=== PATIENT | female | born 1950 | race Caucasian/White ===

== ENCOUNTER → 2016-12-31 | Outpatient (CLI) | payer MEDICARE ==
[2016-12-31 13:37] LABS: Basophils # (A) 0.1 k/uL (0-0.2); Basophils % (A) 1 %; CH 28.6; CHCM 32.4; Eosinophils # (A) 0.3 k/uL (0-0.7); Eosinophils % (A) 4 %; HCT 38.9 % (34.0-46.0); HDW 2.74; HGB 12.3 gm/dL (11.4-16.0); Luc # (Auto) 0.14; Luc % (Auto) 2; Lymphocytes # (A) 1.9 k/uL (1.0-4.8); Lymphocytes % (A) 29 %; MCH 28.1 pg (25.0-35.0); MCHC 31.7 g/dL (31.0-37.0); MCV 88.6 fL (80.0-100.0); Monocytes # (A) 0.3 k/uL (0-1.0); Monocytes % (A) 5 %; Neutrophils % (A) 60 %; RBC 4.39 m/uL (3.80-5.40); RDW 13.7 % (11.5-15.5); WBC 6.7 k/uL (3.8-10.6); WBC (Perox) 6.82
== END | disposition home or self-care (01) ==
LOC: LABWHC1 13:11
PROVIDERS: ATTEND Internal Medicine
DX: K62.5 Hemorrhage of anus and rectum (principal)
CPT/HCPCS: 36415; 85025

== ENCOUNTER → 2017-04-07 | Outpatient (CLI) | payer MEDICARE ==
[2017-04-07 13:23] LABS: ALT 15 U/L (9-52); AST 18 U/L (14-36); Alkaline Phosphatase 84 U/L (38-126); Anion Gap 8 mmol/L; Blood Urea Nitrogen 23 mg/dL (7-17); Calcium 9.4 mg/dL (8.4-10.2); Carbon Dioxide 24 mmol/L (22-30); Chloride 109 mmol/L (98-107); Glucose 89 mg/dL (74-99); Non-African American GFR(MDRD) 56 (>60 ml/min/1.73 sqM); Potassium 4.1 mmol/L (3.5-5.1); Sodium 141 mmol/L (137-145); Total Bilirubin 0.5 mg/dL (0.2-1.3); Total Protein 7.2 g/dL (6.3-8.2)
== END | disposition home or self-care (01) ==
LOC: LABWHC1 12:43
PROVIDERS: ATTEND Internal Medicine
DX: I10 Essential (primary) hypertension (principal)
CPT/HCPCS: 36415; 80053

== ENCOUNTER → 2017-08-30 | Outpatient (CLI) | payer MEDICARE ==
[2017-08-30 10:14] LABS: Appearance,Urine Clear (Clear); Bacteria,Urine Rare /hpf; Bilirubin,Urine Negative (Negative); Glucose,Urine (UA) Negative (Negative); Ketones,Urine Negative (Negative); Leukocyte Esterase,Urine Small (Negative); Mucus,Urine Rare /hpf; Nitrite,Urine Negative (Negative); Particle Count 1176; Protein,Urine Negative (Negative); Specific Gravity,Urine 1.012 (1.001-1.035); Squamous Epithelial Cell,Urine 1 /hpf (0-4); UA Billing (MACRO vs. MICRO) MICRO; Urobilinogen,Urine <2.0 mg/dL (<2.0); WBC,Urine 2 /hpf (0-5)
[2017-08-30 10:17] LABS: CH 29.8; HCT 37.4 % (34.0-46.0); HDW 2.68; HGB 12.1 gm/dL (11.4-16.0); MCH 30.1 pg (25.0-35.0); MCHC 32.2 g/dL (31.0-37.0); MCV 93.3 fL (80.0-100.0); Mean Platelet Volume 7.6; RBC 4.01 m/uL (3.80-5.40); RDW 13.7 % (11.5-15.5); WBC 5.5 k/uL (3.8-10.6)
[2017-08-30 10:41] LABS: ALT 30 U/L (9-52); AST 22 U/L (14-36); Alkaline Phosphatase 90 U/L (38-126); Anion Gap 9 mmol/L; Blood Urea Nitrogen 23 mg/dL (7-17); Carbon Dioxide 24 mmol/L (22-30); Chloride 108 mmol/L (98-107); Cholesterol 166 mg/dL (<200); Glucose 91 mg/dL (74-99); HDL Cholesterol 70 mg/dL (40-60); Non-African American GFR(MDRD) 55 (>60 ml/min/1.73 sqM); Sodium 141 mmol/L (137-145); Total Bilirubin 0.4 mg/dL (0.2-1.3); Total Protein 6.3 g/dL (6.3-8.2)
--- NOTE | 2017-08-30 10:41 | US ---
EXAMINATION TYPE: US carotid duplex BILAT DATE OF EXAM: 08/30/2017 COMPARISON: NONE CLINICAL HISTORY: 780.2 SYNCOPE. Syncope EXAM MEASUREMENTS: RIGHT: Peak Systolic Velocity (PSV) cm/sec ----- Right CCA: 86.7 ----- Right ICA: 93.0 ----- Right ECA: 105.3 ICA/CCA ratio: 1.1 RIGHT: End Diastole cm/sec ----- Right CCA: 26.0 ----- Right ICA: 27.3 ----- Right ECA: 16.1 LEFT: Peak Systolic Velocity (PSV) cm/sec ----- Left CCA: 95.1 ----- Left ICA: 89.9 ----- Left ECA: 98.5 ICA/CCA ratio: 0.9 LEFT: End Diastole cm/sec ----- Left CCA: 22.8 ----- Left ICA: 38.1 ----- Left ECA: 13.5 VERTEBRALS (direction of flow): Right Vertebral: Antegrade Left Vertebral: Antegrade Rhythm: Normal Mild plaque noted bilateral bifurcations. No increased velocities. No evidence of significant stenosi s. Grayscale images show no significant focal plaque in carotid bulb level bilaterally. No suspicious in creased velocities are evident. IMPRESSION: No hemodynamically significant stenosis seen in either internal carotid artery.
--- NOTE | 2017-08-31 06:53 | MM ---
Reason for exam: screening (asymptomatic). Last mammogram was performed 1 year and 11 months ago. History: Patient is postmenopausal. Core biopsy of the left breast. Physical Findings: A clinical breast exam by your physician is recommended on an annual basis and results should be correlated with mammographic findings. MG 3D Screening Mammo W/Cad Bilateral CC and MLO view(s) were taken. Prior study comparison: September 17, 2015, bilateral MG screening mammo w CAD. September 12, 2014, mammogram, performed at [facility]. There are scattered fibroglandular densities. Finding: There are typically benign round calcifications in both breasts. Previous mammotome biopsy in the left breast. There is a chronic nodularity bilaterally. There is no discrete abnormality. ASSESSMENT: Benign, BI-RAD 2 RECOMMENDATION: Routine screening mammogram of both breasts in 1 year.
== END | disposition home or self-care (01) ==
LOC: RADUSWWP 09:38
PROVIDERS: ATTEND Internal Medicine
DX: Z12.31 Encounter for screening mammogram for malignant neoplasm of breast (principal); R55 Syncope and collapse; N39.0 Urinary tract infection, site not specified; I10 Essential (primary) hypertension; E78.2 Mixed hyperlipidemia; E03.9 Hypothyroidism, unspecified
CPT/HCPCS: 84439; 84481; 80061; 80053; 84443; 85027; 81001; 87086; 77063; 93880; 36415; G0202

== ENCOUNTER → 2017-09-10 | Outpatient (CLI) | payer MEDICARE ==
--- NOTE | 2017-09-10 16:30 | MR ---
EXAMINATION TYPE: MR shoulder RT wo con DATE OF EXAM: 09/10/2017 4:21 PM COMPARISON: NONE HISTORY: Right shoulder pain TECHNIQUE: Multiplanar, multisequence imaging of the right shoulder is performed without contrast. FINDINGS: There is no evidence of an os acromiale. There are [id number]-[id number] hypertrophic changes in the right AC joint. The acromion is neutral. There is extensive tendinosis involving the supraspinatus and infraspinatus tendons. There is a 9.9 m m rim rent tear involving the anterior fibers of the infraspinatus tendon. There is a 9.8 mm intrasub stance tear of the supraspinatus tendon. There is no complete tear and there is no muscular retractio n. The cartilaginous glenoid labrum appears intact. The biceps tendon is situated normally within the biceps tendon groove and inserts normally upon the biceps anchor. There is a small amount of fluid in the rotator interval. IMPRESSION: 1. DIFFUSE TENDINOSIS OF BOTH THE SUPRASPINATUS AND INFRASPINATUS TENDONS. 2. INTRASUBSTANCE TEARS OF BOTH THE SUPRASPINATUS AND INFRASPINATUS TENDONS. 3. [id number] HYPERTROPHIC CHANGE IN THE RIGHT AC JOINT.
== END ==
LOC: RADMRIMAIN 15:20
PROVIDERS: ATTEND Orthopaedic Surgery
DX: M75.101 Unspecified rotator cuff tear or rupture of right shoulder, not specified as traumatic (principal); M75.91 Shoulder lesion, unspecified, right shoulder

== ENCOUNTER → 2018-05-13 | Outpatient (CLI) | payer MEDICARE ==
--- NOTE | 2018-05-13 09:03 | CT ---
EXAMINATION TYPE: CT brain wo con DATE OF EXAM: 05/13/2018 COMPARISON: 04/20/2012 INDICATION: PIERRE, runny nose DLP: 1121 mGycm, Automated exposure control for dose reduction was used. CONTRAST: None CT of the brain is performed utilizing 3 mm thick sections through the posterior fossa and 3 mm thick sections through the remaining calvarium. Study is performed within 24 hours of arrival to the hosp [facility]. No abnormal hyperdensity is present to suggest an acute intracranial hemorrhage. No mass lesion is evident. No acute infarcts are evident. Ventricles and sulci are appropriate for the patient age. Paranasal sinuses and mastoid air cells within the [id number] are clear. IMPRESSIONS: 1. No acute intracranial process.
== END | disposition home or self-care (01) ==
LOC: RADCTMAIN 08:02
PROVIDERS: ATTEND Internal Medicine
DX: R51 Headache (principal)
CPT/HCPCS: 70450

== ENCOUNTER → 2018-07-07 | Outpatient (CLI) | payer MEDICARE ==
--- NOTE | 2018-07-07 09:49 | XR ---
Lumbosacral spine HISTORY: Low back pain 5 views of the lumbosacral spine Lumbar vertebral bodies show preserved height and bone mineralization. There is no evident spondyloly sis. Loss of disc height is present greatest at L5-S1, L4-5. Minimal anterolisthesis grade 1 L4-5. Sc lerosis present in the posterior elements of the lumbar spine. There are vascular calcifications note d incidentally. Surgical clips present right upper quadrant, pelvis. IMPRESSION: Degenerative disc disease, facet arthropathy.
== END | disposition home or self-care (01) ==
LOC: RADXRMAIN 08:49
PROVIDERS: ATTEND Internal Medicine
DX: M51.36 Other intervertebral disc degeneration, lumbar region (principal); M46.96 Unspecified inflammatory spondylopathy, lumbar region
CPT/HCPCS: 72110

== ENCOUNTER → 2018-07-28 | Outpatient (CLI) | payer MEDICARE ==
--- NOTE | 2018-07-28 07:44 | US ---
EXAMINATION TYPE: US abdomen complete DATE OF EXAM: 07/28/2018 COMPARISON: CT CLINICAL HISTORY: R10. ABDOMINAL PAIN. Pt states right flank pain x 3 weeks, GB removed EXAM MEASUREMENTS: Liver Length: 17.0 cm CBD: 0.7 cm Spleen: 9.4 cm Right Kidney: 10.1 x 4.5 x 4.1 cm Left Kidney: 10.0 x 3.9 x 3.7 cm Large pt body habitus Pancreas: 3mm duct visualized, head and tail obscured by overlying bowel gas Liver: Heterogeneous, otherwise appeared wnl Gallbladder: Surgically absent Evidence for sonographic Hunter's sign: No CBD: wnl for post fer Spleen: wnl Right Kidney: wnl Left Kidney: wnl Upper IVC: wnl Abd Aorta: wnl No abnormality visualized to account for pt's symptoms Results called to Arelis at Dr's office at time of exam The intrahepatic portion of the IVC and proximal abdominal aorta are within normal limits. Common bile duct is unremarkable. The visualized portions of the pancreas are homogenous. The spleen is u nremarkable. Kidneys are symmetric and free of hydronephrosis. No renal lesions are seen. IMPRESSION: 1. Mild fatty liver. Otherwise unremarkable study.
[2018-07-28 09:49] LABS: Basophils % (A) 1 %; Eosinophils # (A) 0.3 k/uL (0-0.7); Eosinophils % (A) 4 %; HCT 38.7 % (34.0-46.0); HGB 12.2 gm/dL (11.4-16.0); Lymphocytes # (A) 1.6 k/uL (1.0-4.8); Lymphocytes % (A) 23 %; MCH 29.2 pg (25.0-35.0); MCHC 31.6 g/dL (31.0-37.0); MCV 92.4 fL (80.0-100.0); Mean Platelet Volume 6.9; Monocytes # (A) 0.4 k/uL (0-1.0); Monocytes % (A) 5 %; Neutrophils # (A) 4.5 k/uL (1.3-7.7); Neutrophils % (A) 66 %; Platelet Count 204 k/uL (150-450); RBC 4.19 m/uL (3.80-5.40); RDW 12.7 % (11.5-15.5); WBC 6.9 k/uL (3.8-10.6)
[2018-07-28 10:04] LABS: Albumin 3.8 g/dL (3.5-5.0); Calcium 9.5 mg/dL (8.4-10.2); Potassium 4.8 mmol/L (3.5-5.1); Total Bilirubin 0.6 mg/dL (0.2-1.3); Total Protein 6.5 g/dL (6.3-8.2)
[2018-07-28 10:05] LABS: Appearance,Urine Clear (Clear); Bilirubin,Urine Negative (Negative); Blood,Urine Negative (Negative); Color,Urine Light Yellow; Glucose,Urine (UA) Negative (Negative); Hyaline Casts,Urine 6 /lpf (0-2); Ketones,Urine Negative (Negative); Leukocyte Esterase,Urine Moderate (Negative); Mucus,Urine Rare /hpf; Nitrite,Urine Negative (Negative); PH, Urine 5.5 (5.0-8.0); Protein,Urine Negative (Negative); Specific Gravity,Urine 1.009 (1.001-1.035); Squamous Epithelial Cell,Urine 1 /hpf (0-4); Urobilinogen,Urine <2.0 mg/dL (<2.0)
[2018-07-28 11:15] LABS: Erythrocyte Sedimentation Rate 20 mm/hr (0-20)
== END | disposition home or self-care (01) ==
LOC: RADUSWWP 06:56
PROVIDERS: ATTEND Internal Medicine
DX: K76.0 Fatty (change of) liver, not elsewhere classified (principal); I10 Essential (primary) hypertension; N39.0 Urinary tract infection, site not specified; M54.6 Pain in thoracic spine
CPT/HCPCS: 36415; 76700; 80053; 81001; 85025; 85652

== ENCOUNTER → 2018-07-28 | Outpatient (CLI) | payer MEDICARE ==
--- NOTE | 2018-07-28 09:19 | XR ---
EXAMINATION TYPE: XR thoracic spine complete DATE OF EXAM: 07/28/2018 COMPARISON: NONE HISTORY: Pain Alignment is anatomic. There is no compression deformities. Hypertrophic and degenerative changes of the spine noted. There are no compression deformities. Calcifications in the left upper quadrant not ed. Splenic artery aneurysm differential diagnosis IMPRESSION: 1. Multilevel moderate to severe degenerative disc disease 2. Calcification left upper abdomen likely related to splenic artery aneurysm. Corresponds to monserrat jett reported CT exam 2016 confirming the diagnosis of splenic artery aneurysm.
== END | disposition home or self-care (01) ==
LOC: LABWHC1 08:55
PROVIDERS: ATTEND Internal Medicine
DX: M51.34 Other intervertebral disc degeneration, thoracic region (principal); I10 Essential (primary) hypertension; N39.0 Urinary tract infection, site not specified
CPT/HCPCS: 72072

== ENCOUNTER → 2018-10-28 | Outpatient (CLI) | payer MEDICARE ==
--- NOTE | 2018-10-31 10:43 | MM ---
Reason for exam: screening (asymptomatic). Last mammogram was performed 1 year and 2 months ago. History: Patient is postmenopausal. Core biopsy of the left breast. Physical Findings: A clinical breast exam by your physician is recommended on an annual basis and results should be correlated with mammographic findings. MG 3D Screening Mammo W/Cad Bilateral CC and MLO view(s) were taken. Prior study comparison: August 30, 2017, bilateral MG 3d screening mammo w/cad. September 17, 2015, bilateral MG screening mammo w CAD. There are scattered fibroglandular densities. Benign appearing bilateral calcifications. No suspicious abnormality. Left biopsy marker noted. No significant changes when compared with prior studies. ASSESSMENT: Benign, BI-RAD 2 RECOMMENDATION: Routine screening mammogram of both breasts in 1 year.
== END | disposition home or self-care (01) ==
LOC: RADMAMWWP 12:52
PROVIDERS: ATTEND Internal Medicine
DX: Z12.31 Encounter for screening mammogram for malignant neoplasm of breast (principal)
CPT/HCPCS: 77063; 77067

== ENCOUNTER → 2019-03-30 | Outpatient (CLI) | payer MEDICARE ==
--- NOTE | 2019-03-30 10:18 | US ---
EXAMINATION TYPE: US venous doppler duplex LE RT DATE OF EXAM: 03/30/2019 9:58 AM COMPARISON: NONE CLINICAL HISTORY: M79.661 Pain in right lower leg. bruised leg while picking up sticks, no h/o dvt SIDE PERFORMED: right TECHNIQUE: The lower extremity deep venous system is examined utilizing real time linear array sonog kiran with graded compression, doppler sonography and color-flow sonography. VESSELS IMAGED: External Iliac Vein (EIV) Common Femoral Vein Deep Femoral Vein Greater Saphenous Vein * Femoral Vein Popliteal Vein Small Saphenous Vein * Proximal Calf Veins (* superficial vessels) Right Leg: Appears negative for DVT IMPRESSION: 1. Right lower extremity ultrasound negative for deep venous thrombosis.
== END | disposition home or self-care (01) ==
LOC: RADUSWWP 09:40
PROVIDERS: ATTEND Internal Medicine
DX: M79.661 Pain in right lower leg (principal); R22.41 Localized swelling, mass and lump, right lower limb

== ENCOUNTER → 2019-10-04 | Outpatient (CLI) | payer MEDICARE ==
[2019-10-04 14:29] LABS: HCT 37.4 % (34.0-46.0); HGB 12.3 gm/dL (11.4-16.0); MCH 30.1 pg (25.0-35.0); MCHC 32.8 g/dL (31.0-37.0); MCV 91.8 fL (80.0-100.0); Mean Platelet Volume 7.3; Platelet Count 241 k/uL (150-450); RBC 4.08 m/uL (3.80-5.40); RDW 12.9 % (11.5-15.5); WBC 5.4 k/uL (3.8-10.6)
[2019-10-04 14:34] LABS: Potassium 4.5 mmol/L (3.5-5.1)
== END | disposition home or self-care (01) ==
LOC: LABWHC1 12:37
PROVIDERS: ATTEND Internal Medicine Cardiovascular Disease
DX: Z01.812 Encounter for preprocedural laboratory examination (principal); R07.2 Precordial pain; R94.39 Abnormal result of other cardiovascular function study
CPT/HCPCS: 36415; 80051; 82565; 82947; 84520; 85027

== ENCOUNTER 2019-10-19 07:22 | Day surgery (SDC) | payer MEDICARE ==
[2019-10-18 10:08] VITALS: BMI 44.7
[~2019-10-19 07:22] MED LIST: ALPRAZolam 0.25 MG TAB PO PRN; ALPRAZolam 0.5 MG TAB PO PRN; ASPIRIN 325 MG TAB PO STA; ATORVASTATIN 80 MG TAB PO STA; NITROGLYCERIN SL TABS 0.4 MG TAB SUBLINGUAL PRN; SODIUM CHLORIDE 0.9% 1,000 ML in EMPTY BAG 1 BAG IV ONE
[2019-10-19 07:50] VITALS: TEMP 97.9
[2019-10-19] MEDS ORDERED: SODIUM CHLORIDE 0.9% 1,000 ML IV ONE (07:55)
[2019-10-19] MEDS ORDERED: MIDAZOLAM 2 MG/2 ML VIAL IV ONE (08:29)
[2019-10-19] MEDS: LIDOCAINE 1% INJ 10MG/ML (20 ML MDV) SQ ONE ×2 (08:35→08:50)
[2019-10-19] MEDS ORDERED: VERAPAMIL SYRINGE (5 MG/10 ML) INTRAARTER ONE (08:39)
[2019-10-19] MEDS ORDERED: HEPARIN SODIUM 1,000 UN/ML (10ML VL) IV ONE (08:40)
[2019-10-19] MEDS: fentaNYL (PF) 50 MCG/ML 2 ML AMP IV ONE ×2 (08:42→08:47)
[2019-10-19] MEDS ORDERED: RX INFO: IV CONTRAST WAS GIVEN 1 EACH MISC MISCELLANE PRN (09:24)
[2019-10-19] MEDS ORDERED: SODIUM CHLORIDE 0.9% 1,000 ML IV SCH (09:30)
--- NOTE | 2019-10-19 09:40 | P.CARDCATH ---
Date of Procedure: 10/19/19 Preoperative Diagnosis: Chest pain and positive stress test Postoperative Diagnosis: Normal coronary arteries Procedure(s) Performed: Left heart catheterization without left ventriculography Description of Procedure: HISTORY: This is a 69-year-old female with history of hypercholesterolemia was been experiencing chest pains. A cardiac catheterization of size to possible mild ischemia involving the anterior lateral and inferolateral segments. Patient is advised to have a cardiac catheterization for definitive diagnosis CONSENT:I have discussed the risks, benefits and alternative therapies for the above-mentioned procedure and for both sedation/analgesia as well as necessary blood product administration, if indicated, as they pertain to this patient. The patient has indicated understanding and acceptance of the risks and procedures discussed. PROCEDURE: Patient was brought to the lab in a fasting state. Patient was given some IV sedation. The right wrist was infiltrated with lidocaine. The right radial artery was entered using Seldinger technique. IV verapamil and heparin was given. A 5-Swedish right Hong catheter was advanced and was placed in the ascending aorta. Patient has acute bend involving the arch of the aorta and it was difficult to maneuver the catheter into right coronary artery. In the process of torquing the catheter, the catheter coiled and devoloped a twist. The catheter was slowly pulled out and with help of a stiff guidewire, the catheter was pulled out. Patient had moderate discomfort but no immediate complications. Angiogram done after the procedure showed normal findings. Subsequently the catheterization was performed from the right groin. TR band was applied for hemostasis. The patient. The right groin is infiltrated with lidocaine and right femoral artery was entered using Seldinger technique. A 6-Swedish catheter was left in place and selective coronary arteriography and left ventriculography was performed. Patient tolerated the procedure well. Femoral angiogram was performed and Angio-Seal was applied for hemostasis. No immediate complications were noted and patient was transferred to [facility] in a stable condition Conscious Sedation: Versed 1mg Fentanyl 100 g Duration 33 minutes HEMODYNAMICS:. The aortic pressure was 120/70. The left ventricle end- diastolic pressure was 12. There was no gradient across the aortic valve SELECTIVE CORONARY ARTERIOGRAPHY: LEFT MAIN: Normal length and patent THE LEFT ANTERIOR DESCENDING CORONARY ARTERY:. This is a moderate caliber vessel giving rise good-sized diagonal branches. The LAD and branches are free of occlusive disease is minimal plaque. THE LEFT CIRCUMFLEX AND IS CORONARY ARTERY: This is a small to moderate in caliber and free of occlusive disease THE RIGHT CORONARY ARTERY:. This is a dominant vessel giving rise good-sized PDA and PLV and free of any significant occlusive disease LEFT VENTRICULOGRAPHY:. Not performed FINAL IMPRESSION: Minimal plaque in the LAD, otherwise normal coronary arteries PLAN: Maximum medical therapy and risk factor modification PROGNOSIS: Guarded
[2019-10-19] MEDS ORDERED: Acetaminophen-Codeine 300-30mg TAB ONE (10:02)
[2019-10-19 10:38] VITALS: RESP 16
[2019-10-19 14:36] VITALS: BP 118/72; PULSE 58
== END 2019-10-19 14:20 | disposition home or self-care (01) ==
LOC: CATHCVL 07:22
PROVIDERS: ATTEND Internal Medicine Cardiovascular Disease
DX: I25.10 Atherosclerotic heart disease of native coronary artery without angina pectoris (principal); E78.00 Pure hypercholesterolemia, unspecified; F43.9 Reaction to severe stress, unspecified; I10 Essential (primary) hypertension; E78.5 Hyperlipidemia, unspecified; I73.9 Peripheral vascular disease, unspecified; Z79.82 Long term (current) use of aspirin; Z79.899 Other long term (current) drug therapy; Z79.890 Hormone replacement therapy; Z79.1 Long term (current) use of non-steroidal anti-inflammatories (NSAID); Z79.891 Long term (current) use of opiate analgesic; Z88.2 Allergy status to sulfonamides; Z82.49 Family history of ischemic heart disease and other diseases of the circulatory system
CPT/HCPCS: 93458; C1760; C1769 ×4; C1894 ×2; J2250; J2001; J3010; J1644

== ENCOUNTER → 2019-10-30 | Outpatient (CLI) | payer MEDICARE ==
--- NOTE | 2019-10-31 08:47 | MM ---
Reason for exam: screening (asymptomatic). Last mammogram was performed 1 year ago. History: Patient is postmenopausal. Core biopsy of the left breast. Physical Findings: A clinical breast exam by your physician is recommended on an annual basis and results should be correlated with mammographic findings. MG 3D Screening Mammo W/Cad Bilateral CC and MLO view(s) were taken. Prior study comparison: October 28, 2018, bilateral MG 3d screening mammo w/cad. August 30, 2017, bilateral MG 3d screening mammo w/cad. The breast tissue is heterogeneously dense. This may lower the sensitivity of mammography. There are benign appearing round dystrophic calcifications bilaterally. There is chronic nodularity bilaterally. There is no discrete abnormality. ASSESSMENT: Benign, BI-RAD 2 RECOMMENDATION: Routine screening mammogram of both breasts in 1 year. Manage on a clinical basis with regard to bilateral axilla pain.
== END | disposition home or self-care (01) ==
LOC: RADMAMWWP 10:38
PROVIDERS: ATTEND Internal Medicine
DX: Z12.31 Encounter for screening mammogram for malignant neoplasm of breast (principal); M79.622 Pain in left upper arm; M79.621 Pain in right upper arm
CPT/HCPCS: 77063; 77067

== ENCOUNTER → 2020-05-03 | Outpatient (CLI) | payer MEDICARE ==
--- NOTE | 2020-05-03 13:38 | CT ---
EXAMINATION TYPE: CT brain wo con DATE OF EXAM: 05/03/2020 COMPARISON: CT brain dated 05/13/2018 HISTORY: Rt sided arm numbness CT DLP: 1072.3 mGycm Automated exposure control for dose reduction was used. TECHNIQUE: CT scan of the head is performed without contrast. FINDINGS: There is no acute intracranial hemorrhage or midline shift identified. There is minimal d iffuse ventricular and sulcal prominence consistent with diffuse age-related cerebral atrophy. The globes are intact. Trace mucosal thickening of the ethmoid and right maxillary sinus. The remaining v isualized sinuses are clear. Atherosclerosis of the intracranial vasculature. Right parotid mass is complex and solid measuring 3.2 x 2.9 cm but only partially visualized on this examination. IMPRESSION: 1. No acute intracranial hemorrhage or midline shift. 2. 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 MRI could be utilized to further characterize this mass in addition to recommendation for ENT consultation consideration for percutaneous biopsy. 3. Diffuse age-related cerebral atrophy, mild overall.
--- NOTE | 2020-05-03 14:08 | CT ---
EXAMINATION TYPE: CT soft tissue neck wo con DATE OF EXAM: 05/03/2020 HISTORY: Rt sided parotid mass COMPARISON: CT brain of the same date CT DLP: 742.4 mGycm. Automated Exposure Control for Dose Reduction was Utilized. TECHNIQUE: CT scan of the neck is performed without intravenous contrast, limiting evaluation. FINDINGS: Patient motion limits examination particularly of the lungs. Parotid/submandibular glands: There is a solid right parotid gland mass measuring 3.4 x 3.1 x 4.7 cm in anterior posterior by transverse by craniocaudal dimension. This involves both the deep and superf icial lobes of the right parotid gland and appears slightly heterogenous with internal complexity as there a few areas of hyperintensity and few punctate foci of hypointensity. No inflammatory change of the surrounding the parotid gland. No suspicious adenopathy in the neck. Carotid/Vascular Structures: Suboptimally evaluated without contrast. Conventional three-vessel branc h pattern of the aortic arch and mild atheromatous change. Osseous Structures: Motion artifact somewhat limits evaluation of the spine. There is minimal retroli sthesis of C5 on C6, likely on a degenerative basis. Overall mild degenerative change. Facets remain aligned. No abnormal prevertebral soft tissue swelling. Other: Visualized portion of the brain as discussed on the CT brain dictation of the same date. Coron adriana artery calcifications partially visualized, at least mild. Enlargement of the main pulmonary vanda conor measure up to 2.7 cm suggestive of pulmonary artery hypertension. Incidentally noted bovine aort ic arch. Atrophy of the thyroid. Subpleural 5 mm right apical pulmonary nodule versus focal pleural p arenchymal thickening on image 28. IMPRESSION: 1. Solid complex 4.7 cm right parotid gland mass involving both the deep and superficial lobes of the parotid gland. MRI could be utilized to further characterize this mass. Additionally, recommendation for ENT consultation consideration for percutaneous biopsy. 2. Possible subpleural 5 mm right apical pulmonary nodule versus focal pleural thickening suboptimall y evaluated given patient motion. CT thorax could further evaluate the entirety of the lungs.
== END | disposition home or self-care (01) ==
LOC: RADCTMAIN 11:58
PROVIDERS: ATTEND Internal Medicine
DX: D11.0 Benign neoplasm of parotid gland (principal); G31.1 Senile degeneration of brain, not elsewhere classified
CPT/HCPCS: 70450; 70490

== ENCOUNTER → 2020-07-02 | Outpatient (CLI) | payer MEDICARE | END | disposition home or self-care (01) | LOC: LABPAT 11:16 | PROVIDERS: ATTEND Otolaryngology | DX: Z01.818 Encounter for other preprocedural examination (principal) | CPT/HCPCS: U0003; C9803 ==

== ENCOUNTER 2020-08-19 20:51 | Emergency (ER) | payer MEDICARE ==
[2020-08-19] MEDS ORDERED: KETOROLAC 15 MG/ML 1 ML VIAL IVP STA (21:29)
[2020-08-19] MEDS ORDERED: SODIUM CHLORIDE 0.9% 1,000 ML IV STA (21:29)
[2020-08-19] MEDS ORDERED: ORPHENADRINE 30 MG/ML 2 ML VIAL IVP STA (21:30)
--- NOTE | 2020-08-19 21:39 | ED ---
Headache HPI - General Chief Complaint: Headache Stated Complaint: Headache Time Seen by Provider: 08/19/20 21:08 Source: patient, family, RN notes reviewed Mode of arrival: ambulatory Limitations: no limitations - History of Present Illness Initial Comments: This is a 70-year-old female history of a recent right parotid tumor resection on July 09 presents with complaints of feeling tired all day for the past several days slight cough chronic rhinorrhea and right-sided headache. States the pain is reproducible by palpating her scalp. No cough no phlegm production no dysuria no hematuria she does states she's sleeping a lot the. No other complaints or modifying factors at this time she does have a right facial droop and lid lag on the right secondary to the surgery she states. No focal weakness otherwise. MD Complaint: headache - Related Data Home Medications Medication Instructions Recorded Confirmed Levothyroxine Sodium [Levoxyl] 200 mcg PO DAILY 11/12/15 10/19/19 Lisinopril-Hctz 20-25 mg 1 tab PO DAILY 11/12/15 10/19/19 [Zestoretic 20-25] Pantoprazole Sodium [Protonix] 40 mg PO DAILY 11/12/15 10/19/19 Pravastatin Sodium [Pravachol] 40 mg PO BID 11/12/15 10/19/19 Ibuprofen [Motrin] 800 mg PO TID PRN 11/23/16 10/19/19 Multivitamins, Thera [Multivitamin 1 tab PO DAILY 11/23/16 10/19/19 (formulary)] Acetaminophen-Codeine 300-30mg 1 tab PO Q6H PRN 11/01/17 10/19/19 [Tylenol w/codeine #3] Aspirin [Children's Aspirin] 81 mg PO DAILY 10/18/19 10/19/19 DULoxetine HCL [Cymbalta] 60 mg PO DAILY 10/18/19 10/19/19 Metoprolol Succinate (ER) [Toprol 25 mg PO DAILY 10/18/19 10/19/19 XL] Allergies Allergy/AdvReac Type Severity Reaction Status Date / Time sulfamethoxazole Allergy Rash/Hives Verified 08/19/20 20:59 [From Bactrim] trimethoprim [From Bactrim] Allergy Rash/Hives Verified 08/19/20 20:59 Review of Systems ROS Statement: Those systems with pertinent positive or pertinent negative responses have been documented in the HPI. ROS Other: All systems not noted in ROS Statement are negative. Past Medical History Past Medical History: Hyperlipidemia, Hypertension Additional Past Medical History / Comment(s): ankle swelling, dry eye History of Any Multi-Drug Resistant Organisms: None Reported Past Surgical History: Bowel Resection, Cholecystectomy, Hysterectomy, Joint Replacement Additional Past Surgical History / Comment(s): TOTAL LEFT KNEE, rectocele repair, 07/27/16 TOTAL RT KNEE REPLEAMCENT, tumor removed from right cheek. Past Anesthesia/Blood Transfusion Reactions: No Reported Reaction Past Psychological History: Anxiety Smoking Status: Never smoker Past Alcohol Use History: None Reported Past Drug Use History: None Reported - Past Family History Father Family Medical History: Myocardial Infarction ([place]) Additional Family Medical History / Comment(s): ALCOHOL ABUSE, KIDNEY FAILURE Mother Family Medical History: COPD, Diabetes Mellitus General Exam - General Exam Comments Initial Comments: This is a well-developed well-nourished awake alert oriented 3 female Limitations: no limitations General appearance: alert, in no apparent distress Head exam: Present: atraumatic, normocephalic Eye exam: Present: PERRL, EOMI, other (Seventh nerve palsy of the right lid noted) Pupils: Present: normal accommodation ENT exam: Present: TM's normal bilaterally, other (Right facial asymmetry compared to the left consistent with facial nerve injury) Neck exam: Present: normal inspection, full ROM, other (No stridor JVD or bruits). Absent: tenderness, meningismus, lymphadenopathy Respiratory exam: Present: normal lung sounds bilaterally. Absent: respiratory distress, wheezes, rales, rhonchi, stridor Cardiovascular Exam: Present: regular rate, normal rhythm, normal heart sounds. Absent: systolic murmur, diastolic murmur, rubs, gallop, clicks Back exam: Present: full ROM Neurological exam: Present: alert, oriented X3, motor sensory deficit. Absent: CN II-XII intact Psychiatric exam: Present: normal affect, normal mood Skin exam: Present: warm, dry, intact, normal color. Absent: rash Course Vital Signs 08/19/20 20:55 Temperature 97.1 F L Pulse Rate 72 Respiratory 20 Rate Blood Pressure 154/94 O2 Sat by Pulse 98 Oximetry Medical Decision Making - Medical Decision Making I did a long discussion with the patient family regarding findings. This time no infectious etiology is found. Lungs are clear no dysuria or change in color spell. Patient is showing improved the. Patient will be discharged she is follow-up with her doctor return when necessary. Return parameters were discussed. She will follow-up with her PCP. The headache symptoms are consistent with musculoskeletal etiology. Additionally patient is states she has some relief from initial treatment. - Lab Data Result diagrams: 08/19/20 21:31 08/19/20 21:31 Lab Results 08/19/20 08/19/20 Range/Units 21:31 21:31 WBC 7.1 (3.8-10.6) k/uL RBC 4.55 (3.80-5.40) m/uL Hgb 13.5 (11.4-16.0) gm/dL Hct 40.8 (34.0-46.0) % MCV 89.7 (80.0-100.0) fL MCH 29.7 (25.0-35.0) pg MCHC 33.2 (31.0-37.0) g/dL RDW 12.8 (11.5-15.5) % Plt Count 223 (150-450) k/uL Neutrophils % 43 % Lymphocytes % 38 % Monocytes % 5 % Eosinophils % 11 % Basophils % 1 % Neutrophils # 3.1 (1.3-7.7) k/uL Lymphocytes # 2.7 (1.0-4.8) k/uL Monocytes # 0.4 (0-1.0) k/uL Eosinophils # 0.8 H (0-0.7) k/uL Basophils # 0.1 (0-0.2) k/uL Sodium 141 (137-145) mmol/L Potassium 4.1 (3.5-5.1) mmol/L Chloride 111 H (98-107) mmol/L Carbon Dioxide 23 (22-30) mmol/L Anion Gap 7 mmol/L BUN 19 H (7-17) mg/dL Creatinine 1.02 (0.52-1.04) mg/dL Est GFR (CKD-EPI)AfAm 64 (>60 ml/min/1.73 sqM) Est GFR (CKD-EPI)NonAf 55 (>60 ml/min/1.73 sqM) Glucose 124 H (74-99) mg/dL Calcium 9.2 (8.4-10.2) mg/dL Total Bilirubin 0.3 (0.2-1.3) mg/dL AST 23 (14-36) U/L ALT 14 (4-34) U/L Alkaline Phosphatase 95 (38-126) U/L Total Protein 6.5 (6.3-8.2) g/dL Albumin 4.0 (3.5-5.0) g/dL - Radiology Data Radiology results: report reviewed (Did review the imaging and report no acute f indings.), image reviewed Disposition Clinical Impression: Headache, Dehydration Disposition: HOME SELF-CARE Condition: Good Instructions (If sedation given, give patient instructions): Dehydration (ED), Acute Headache (ED) Is patient prescribed a controlled substance at d/c from ED?: No Referrals: Young Dee [Primary Care Provider] - 1-2 days
[2020-08-19 21:46] LABS: Basophils # (A) 0.1 k/uL (0-0.2); Basophils % (A) 1 %; Eosinophils # (A) 0.8 k/uL (0-0.7); Eosinophils % (A) 11 %; HCT 40.8 % (34.0-46.0); HGB 13.5 gm/dL (11.4-16.0); Lymphocytes # (A) 2.7 k/uL (1.0-4.8); Lymphocytes % (A) 38 %; MCH 29.7 pg (25.0-35.0); MCHC 33.2 g/dL (31.0-37.0); MCV 89.7 fL (80.0-100.0); Mean Platelet Volume 8.3; Monocytes # (A) 0.4 k/uL (0-1.0); Monocytes % (A) 5 %; Neutrophils # (A) 3.1 k/uL (1.3-7.7); Neutrophils % (A) 43 %; Platelet Count 223 k/uL (150-450); RBC 4.55 m/uL (3.80-5.40); RDW 12.8 % (11.5-15.5); WBC 7.1 k/uL (3.8-10.6)
[2020-08-19 21:57] LABS: Calcium 9.2 mg/dL (8.4-10.2); Potassium 4.1 mmol/L (3.5-5.1); Total Bilirubin 0.3 mg/dL (0.2-1.3); Total Protein 6.5 g/dL (6.3-8.2)
--- NOTE | 2020-08-19 22:20 | CT ---
EXAMINATION TYPE: CT brain wo con DATE OF EXAM: 08/19/2020 COMPARISON: 05/03/2020 HISTORY: Headache w/neuro deficits CT DLP: 1103.4 mGycm Automated exposure control for dose reduction was used. Ventricles have normal size. There is no mass effect nor midline shift. There is no sign of intracran ial hemorrhage. Calvarium appears intact. Skull base is intact. IMPRESSION: Negative CT scan of the brain. Brain unchanged compared to old exam.
[2020-08-19] MEDS ORDERED: fentaNYL (PF) 50 MCG/ML 2 ML AMP IV STA (22:59)
[2020-08-19 23:09] VITALS: BP 152/79; PULSE 60; RESP 16; TEMP 97.6
== END 2020-08-19 23:34 | disposition home or self-care (01) ==
LOC: EC 20:51
DX: E86.0 Dehydration (principal); R51 Headache; E78.5 Hyperlipidemia, unspecified; I10 Essential (primary) hypertension; R05 Cough; J34.89 Other specified disorders of nose and nasal sinuses; F41.9 Anxiety disorder, unspecified; Z79.899 Other long term (current) drug therapy; Z79.82 Long term (current) use of aspirin; Z20.828 Contact with and (suspected) exposure to other viral communicable diseases; Z90.49 Acquired absence of other specified parts of digestive tract; Z88.2 Allergy status to sulfonamides; Z88.1 Allergy status to other antibiotic agents; Z96.653 Presence of artificial knee joint, bilateral
CPT/HCPCS: 96374; 96375 ×2; 96361; 99284; 36415; 80053; 85025; 87502; 70450; U0003; J2360; J3010; J1885

== ENCOUNTER → 2020-11-04 | Outpatient (CLI) | payer MEDICARE ==
--- NOTE | 2020-11-04 11:29 | MM ---
Reason for exam: screening (asymptomatic). Last mammogram was performed 1 year ago. History: Patient is postmenopausal. Core biopsy of the left breast. Physical Findings: A clinical breast exam by your physician is recommended on an annual basis and results should be correlated with mammographic findings. MG 3D Screening Mammo W/Cad Bilateral CC and MLO view(s) were taken. Prior study comparison: October 30, 2019, bilateral MG 3d screening mammo w/cad. October 28, 2018, bilateral MG 3d screening mammo w/cad. The breast tissue is heterogeneously dense. This may lower the sensitivity of mammography. There are benign appearing round calcifications bilaterally. Previous mammotome biopsy in the left breast. There is chronic nodularity bilaterally. There is no discrete abnormality. ASSESSMENT: Benign, BI-RAD 2 RECOMMENDATION: Routine screening mammogram of both breasts in 1 year.
== END | disposition home or self-care (01) ==
LOC: RADMAMWWP 09:54
PROVIDERS: ATTEND Family Medicine
DX: Z12.31 Encounter for screening mammogram for malignant neoplasm of breast (principal)
CPT/HCPCS: 77063; 77067

== ENCOUNTER → 2020-11-06 | Outpatient (CLI) | payer MEDICARE ==
--- NOTE | 2020-11-06 10:23 | XR ---
EXAMINATION TYPE: XR hand complete RT DATE OF EXAM: 11/06/2020 COMPARISON: NONE HISTORY: Pain TECHNIQUE: Three views are submitted. FINDINGS: The osseous structures are intact. Arthropathy of the DIP and PIP joints noted as well as the first M CP joint. IMPRESSION: 1. No definite acute fracture or dislocation if symptoms persist, follow-up study in 7 to 10 days wo uld be suggested
== END | disposition home or self-care (01) ==
LOC: RADXRMAIN 09:54
PROVIDERS: ATTEND Nurse Practitioner Adult Health
DX: M79.641 Pain in right hand (principal)

== ENCOUNTER → 2021-03-14 | Outpatient (CLI) | payer MEDICARE ==
[2021-03-14 12:36] LABS: Basophils # (A) 0.1 k/uL (0-0.2); Basophils % (A) 1 %; Eosinophils # (A) 0.5 k/uL (0-0.7); Eosinophils % (A) 10 %; HCT 36.5 % (34.0-46.0); HGB 12.4 gm/dL (11.4-16.0); Lymphocytes # (A) 1.7 k/uL (1.0-4.8); Lymphocytes % (A) 33 %; MCH 31.1 pg (25.0-35.0); MCV 91.3 fL (80.0-100.0); Mean Platelet Volume 8.1; Monocytes # (A) 0.3 k/uL (0-1.0); Monocytes % (A) 5 %; Neutrophils # (A) 2.5 k/uL (1.3-7.7); Neutrophils % (A) 49 %; Platelet Count 184 k/uL (150-450); RDW 12.9 % (11.5-15.5); WBC 5.1 k/uL (3.8-10.6)
== END | disposition home or self-care (01) ==
LOC: LABPAT 11:58
PROVIDERS: ATTEND Orthopaedic Surgery
DX: Z01.812 Encounter for preprocedural laboratory examination (principal); G56.01 Carpal tunnel syndrome, right upper limb
CPT/HCPCS: 36415; 80051; 85025

== ENCOUNTER 2021-03-27 09:27 | Day surgery (SDC) | payer MEDICARE ==
[2021-03-24 15:26] VITALS: BMI 46.5
--- NOTE | 2021-03-26 20:21 | HP ---
HISTORY AND PHYSICAL DATE OF SURGERY: 03/27/2021 Sondra Adam is a 70-year-old patient seen with symptomatic right carpal tunnel syndrome. Options were discussed. She elected to proceed with decompression of right median nerve. Consent was obtained. PAST MEDICAL HISTORY: Hypertension, hyperlipidemia, hypothyroidism. PAST SURGICAL HISTORY: Cholecystectomy, parotidectomy, shoulder arthroscopy, bilateral total knee arthroplasty. DAILY MEDICATIONS: Levothyroxine, lisinopril/hydrochlorothiazide, Cymbalta, pravastatin. ALLERGIES: BACTRIM. SOCIAL HISTORY: She denies tobacco use. PHYSICAL EVALUATION OF THE RIGHT HAND: She has a positive carpal compression and carpal Tinel's causing increased numbness and tingling in the median nerve distribution. She does have decreased sensation throughout the median nerve distribution. She is nontender along the A1 bonita sites. There is good perfusion distally. There is a good radial pulse present. RADIOGRAPHS: Right wrist radiographs were obtained revealing some osteoarthritic changes. An EMG of the upper extremities revealed carpal tunnel syndrome. IMPRESSION: 1. Right carpal tunnel syndrome. 2. Hypertension. 3. Hyperlipidemia. 4. Hypothyroidism. 5. Gastroesophageal reflux disease. PLAN: Decompression, right median nerve. MMODL / IJN: [id number] /
[~2021-03-27 09:27] MED LIST changes: -ALPRAZolam 0.25 MG TAB PO PRN; -ALPRAZolam 0.5 MG TAB PO PRN; -ASPIRIN 325 MG TAB PO STA; -ATORVASTATIN 80 MG TAB PO STA; +DEXAMETHASONE SOD PHOSPHATE 4 MG/ML 1 ML VIAL IV ONE; +HYDROmorphone 0.5 MG/0.5 ML SYRINGE IVP PRN; +LACTATED RINGERS 1,000 ML IV SCH; -NITROGLYCERIN SL TABS 0.4 MG TAB SUBLINGUAL PRN; +ONDANSETRON 4 MG/2 ML VIAL IVP ONE; -SODIUM CHLORIDE 0.9% 1,000 ML in EMPTY BAG 1 BAG IV ONE; +ceFAZolin 3 GM in SODIUM CHLORIDE 0.9% 100 ML IVPB PRN
[2021-03-27 10:08] VITALS: TEMP 97.2
[2021-03-27] MEDS ORDERED: LIDOCAINE 1% (10MG/ML) FOR IV START INTRADERMA ONE (10:14)
[2021-03-27] MEDS ORDERED: fentaNYL (PF) 50 MCG/ML 2 ML AMP ONE (11:23)
[2021-03-27] MEDS ORDERED: MIDAZOLAM 2 MG/2 ML VIAL ONE (11:23)
[2021-03-27] MEDS ORDERED: LIDOCAINE 1% INJ 10MG/ML (20 ML MDV) ONE (11:23)
[2021-03-27] MEDS ORDERED: KETAMINE 10 MG/ML 20 ML VIAL ONE (11:23)
[2021-03-27] MEDS ORDERED: PROPOFOL 10 MG/ML 20 ML VIAL IV ONE (11:23)
[2021-03-27] MEDS ORDERED: BUPIVACAINE (PF) 0.25% 30 ML VIAL SQ ONE (11:34)
--- NOTE | 2021-03-27 11:51 | P.OP ---
Date of Procedure: 03/27/21 Preoperative Diagnosis: Right carpal tunnel syndrome Postoperative Diagnosis: Right carpal tunnel syndrome Procedure(s) Performed: Decompression right median nerve Anesthesia: MAC, local Surgeon: Cooper Peter Estimated Blood Loss (ml): 0 Pathology: none sent Condition: stable Disposition: PACU Indications for Procedure: 70-year-old patient seen with symptomatic right carpal tunnel syndrome. After treatment options were discussed, she elected to proceed with decompression. Operative Findings: see description of procedure Description of Procedure: Patient was taken to the operative suite. The patient received preoperative IV antibiotics. The patient underwent IV sedation by the department of anesthesia. A well-padded tourniquet placed proximal right upper extremity. Right upper extremity was prepped and draped in the normal sterile orthopedic fashion. I infiltrated the proposed incision site with 10 mL quarter percent plain Marcaine. Once sufficient local analgesia was noted the extremity was elevated and tourniquet insufflated to 250. I made an incision beginning at the volar wrist crease extending distally approximately 3 cm in line with the fourth metacarpal sharply through skin. I dissected down through the palmar fascia to the transverse carpal ligament. I made a small incision through the transverse carpal ligament. I released the transverse carpal ligament proximally and distally with blunt Metzenbaums. There was good complete release of the transverse carpal ligament with good decompression of the nerve. There was good hemostasis. The wound was irrigated. The skin margins were proximal nylon suture. Sterile dressings were applied. The tourniquet was released with immediate capillary refill to all digits noted. The patient was awakened and transferred to recovery in stable condition.
[2021-03-27 12:10] VITALS: BP 134/70; PULSE 78; RESP 18
== END 2021-03-27 12:22 | disposition home or self-care (01) ==
LOC: OR 09:27
PROVIDERS: ATTEND Orthopaedic Surgery
DX: G56.01 Carpal tunnel syndrome, right upper limb (principal); I10 Essential (primary) hypertension; E78.5 Hyperlipidemia, unspecified; E03.9 Hypothyroidism, unspecified; F41.9 Anxiety disorder, unspecified; K21.9 Gastro-esophageal reflux disease without esophagitis; Z79.890 Hormone replacement therapy; Z79.899 Other long term (current) drug therapy; Z88.2 Allergy status to sulfonamides
CPT/HCPCS: 64721; J2250; J1100; J0690; J2405; J2001; J3010; J2704

== ENCOUNTER → 2021-04-18 | Outpatient (CLI) | payer MEDICARE ==
[2021-04-18 20:47] LABS: Basophils # (A) 0.02 X 10*3/uL (0.00-0.10); Basophils % (A) 0.5 %; Eosinophils # (A) 0.37 X 10*3/uL (0.04-0.35); Eosinophils % (A) 8.6 %; HCT 37.8 % (37.2-46.3); HGB 12.2 g/dL (12.0-15.0); Lymphocytes # (A) 1.44 X 10*3/uL (0.90-5.00); Lymphocytes % (A) 33.4 %; MCH 30.3 pg (27.0-32.0); MCHC 32.3 g/dL (32.0-37.0); MCV 93.8 fL (80.0-97.0); Mean Platelet Volume 11.9 fL (9.5-12.2); Monocytes # (A) 0.36 X 10*3/uL (0.20-1.00); Monocytes % (A) 8.4 %; Neutrophils # (A) 2.11 X 10*3/uL (1.80-7.70); Neutrophils % (A) 48.9 %; Platelet Count 203 X 10*3/uL (140-440); RBC 4.03 X 10*6/uL (4.10-5.20); RDW 12.5 % (11.5-14.5); WBC 4.31 X 10*3/uL (4.50-10.00)
[2021-04-18 20:55] LABS: ALT 16 U/L (8-44); AST 19 U/L (13-35); African American GFR (CKD) 85.4 (60.0-200.0); Albumin/Globulin Ratio 1.77 (1.60-3.17); Alkaline Phosphatase 84 U/L (41-126); BUN/Creat Ratio 23.75 Ratio (12.00-20.00); Calcium 9.1 mg/dL (8.7-10.3); Chloride 107 mmol/L (96-109); Chol/HDL Ratio 2.64; Cholesterol 161 mg/dL (0-200); Globulin 2.2 g/dL (1.6-3.3); Glucose 99 mg/dL (70-110); LDL Cholesterol,Calculated 83.6 mg/dL (0.0-131.0); Non-African American GFR(CKD) 73.7 (60.0-200.0); Potassium 4.2 mmol/L (3.5-5.5); Sodium 142 mmol/L (135-145); Total Bilirubin 0.4 mg/dL (0.2-1.2); Total Protein 6.1 g/dL (6.2-8.2)
== END | disposition home or self-care (01) ==
LOC: LABWHC1 11:41
PROVIDERS: ATTEND Nurse Practitioner Adult Health
DX: E03.9 Hypothyroidism, unspecified (principal); J32.0 Chronic maxillary sinusitis; E66.9 Obesity, unspecified; E78.5 Hyperlipidemia, unspecified; K21.9 Gastro-esophageal reflux disease without esophagitis; I10 Essential (primary) hypertension
CPT/HCPCS: 36415; 80053; 80061; 82306; 84439; 84443; 85025

== ENCOUNTER 2021-12-14 13:34 | Emergency (ER) | payer MEDICARE ==
[2021-12-14 14:18] VITALS: RESP 18; TEMP 98.3
[2021-12-14] MEDS ORDERED: MORPHINE SULFATE 4 MG/ML SYRINGE IV STA (14:29)
[2021-12-14] MEDS ORDERED: ONDANSETRON 4 MG/2 ML VIAL IVP STA (14:29)
--- NOTE | 2021-12-14 14:37 | ED ---
Fall HPI - General Chief Complaint: Fall Stated Complaint: fall last pm, hit head/lt side pain Time Seen by Provider: 12/14/21 14:24 Source: patient Mode of arrival: ambulatory - History of Present Illness Initial Comments: This is a pleasant 71-year-old female with a history of hypertension. She presents in the department today complaining of pain to her left chest wall both anteriorly and posteriorly from a fall yesterday. Patient slipped on ice and was injured by bricks around the ground. One struck her in the left posterior/lateral aspect of her lip area. She then struck the left side of her head Underberg's well. There is no preceding symptomology. No blood thinners. No loss of consciousness. No nausea or vomiting. Patient recalls the entire event. Again, the injury occurred yesterday. Patient states that the pain today is sharp, exacerbated by movement, breathing, coughing and palpation. No headache, no fever or chills, no changes in vision or hearing, no sore throat or difficulty with speech, no neck pain, no abdominal pain, no nausea or vomiting, no changes in urination or bowel movements, no numbness or tingling, no extremity pain, no skin rashes or lesions. MD Complaint: fall - Related Data Home Medications Medication Instructions Recorded Confirmed Levothyroxine Sodium [Levoxyl] 200 mcg PO DAILY 11/12/15 03/24/21 Lisinopril-Hctz 20-25 mg 1 tab PO DAILY 11/12/15 03/24/21 [Zestoretic 20-25] Pantoprazole Sodium [Protonix] 40 mg PO DAILY 11/12/15 03/24/21 Pravastatin Sodium [Pravachol] 40 mg PO DAILY 11/12/15 03/24/21 Ibuprofen [Motrin] 800 mg PO TID PRN 11/23/16 03/24/21 Acetaminophen-Codeine 300-30mg 1 tab PO Q6H PRN 11/01/17 03/24/21 [Tylenol w/codeine #3] DULoxetine HCL [Cymbalta] 60 mg PO DAILY 10/18/19 03/24/21 Metoprolol Succinate (ER) [Toprol 25 mg PO DAILY 10/18/19 03/24/21 XL] Previous Rx's Medication Instructions Recorded HYDROcodone/APAP 5-325MG [Rombauer 1 tab PO Q6HR PRN 3 Days #12 tab 12/14/21 5-325] Allergies Allergy/AdvReac Type Severity Reaction Status Date / Time sulfamethoxazole Allergy Rash/Hives Verified 12/14/21 14:18 [From Bactrim] trimethoprim [From Bactrim] Allergy Rash/Hives Verified 12/14/21 14:18 Review of Systems ROS Statement: Those systems with pertinent positive or pertinent negative responses have been documented in the HPI. ROS Other: All systems not noted in ROS Statement are negative. 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 Past Anesthesia/Blood Transfusion Reactions: No Reported Reaction Past Psychological History: Anxiety Smoking Status: Never smoker Past Alcohol Use History: None Reported Past Drug Use History: None Reported - Past Family History Father Family Medical History: Myocardial Infarction ([place]) Additional Family Medical History / Comment(s): ALCOHOL ABUSE, KIDNEY FAILURE Mother Family Medical History: COPD, Diabetes Mellitus General Exam - General Exam Comments Initial Comments: Abdomen female in significant distress secondary to left chest wall pain. Blood pressure is elevated. Remainder of vital signs are stable. Limitations: no limitations General appearance: alert, in distress Head exam: Present: atraumatic, normocephalic, normal inspection Eye exam: Present: normal appearance, PERRL, EOMI. Absent: scleral icterus, conjunctival injection, periorbital swelling Pupils: Present: normal accommodation ENT exam: Present: normal exam, normal oropharynx, mucous membranes dry, mucous membranes moist, TM's normal bilaterally, normal external ear exam Neck exam: Present: normal inspection, full ROM. Absent: tenderness, meningismus, lymphadenopathy Respiratory exam: Present: normal lung sounds bilaterally, chest wall tenderness, accessory muscle use, other (Patient has some bruising noted to the left posterior/lateral lower rib area. There is pain with AP compression. No subcutaneous emphysema. No break in skin integrity. No significant pain to palpation anteriorly.). Absent: respiratory distress, wheezes, rales, rhonchi, stridor Cardiovascular Exam: Present: regular rate, normal rhythm, normal heart sounds. Absent: systolic murmur, diastolic murmur, rubs, gallop, clicks GI/Abdominal exam: Present: soft, normal bowel sounds. Absent: distended, tenderness, guarding, rebound, rigid Extremities exam: Present: normal inspection, full ROM, normal capillary refill. Absent: tenderness, pedal edema, joint swelling, calf tenderness Back exam: Present: normal inspection Neurological exam: Present: alert, oriented X3, CN II-XII intact Psychiatric exam: Present: normal affect, normal mood Skin exam: Present: warm, dry, intact, normal color. Absent: rash Course Vital Signs 12/14/21 14:13 Temperature 98.3 F Pulse Rate 81 Respiratory 18 Rate Blood Pressure 169/99 O2 Sat by Pulse 97 Oximetry Medical Decision Making - Medical Decision Making Patient presents after mechanical fall yesterday. Patient slipped on ice and struck her left posterior lateral chest wall. Now patient is feeling pain throughout the entire chest wall both anteriorly and posteriorly. Patient also struck the left parietal aspect of her head. No LOC. No blood thinners. Computed tomography scan of the brain and cervical spine indicated by [place] CT rule= 1. Given the patient's mechanism of injury and location of pain I'm going to order an EKG and cardiac evaluation. However this appears to be mechanical in nature, likely related to a rib injury, probable fracture. Patient has good air m ovement. Unlikely to be pneumothorax. Patient's CT of her brain and neck show no evidence of acute pathology. Drip and chest x-ray are essentially normal. Given the patient's presentation I suspect the patient has an occult rib fracture to left lower rib. We'll treat conservatively. Patient did ask for pain medication. I gave her a short course Rombauer. Patient was warned about driving and operating machinery. She is worried about the sedation effects and constipation effects. Patient was told to return to the ER for any signs or symptoms worsen. Told to return immediately if any other problems arise. All questions answered. Treatment plan discussed. Patient in agreement Head injury instructions discussed in detail. - Lab Data Result diagrams: 12/14/21 14:51 12/14/21 14:51 Lab Results 12/14/21 12/14/21 12/14/21 Range/Units 14:51 14:51 14:51 WBC 6.1 (3.8-10.6) k/uL RBC 4.00 (3.80-5.40) m/uL Hgb 12.7 (11.4-16.0) gm/dL Hct 38.2 (34.0-46.0) % MCV 95.6 (80.0-100.0) fL MCH 31.7 (25.0-35.0) pg MCHC 33.2 (31.0-37.0) g/dL RDW 12.9 (11.5-15.5) % Plt Count 226 (150-450) k/uL MPV 8.1 Neutrophils % 60 % Lymphocytes % 27 % Monocytes % 5 % Eosinophils % 6 % Basophils % 1 % Neutrophils # 3.6 (1.3-7.7) k/uL Lymphocytes # 1.6 (1.0-4.8) k/uL Monocytes # 0.3 (0-1.0) k/uL Eosinophils # 0.4 (0-0.7) k/uL Basophils # 0.0 (0-0.2) k/uL Sodium 138 (137-145) mmol/L Potassium 3.6 (3.5-5.1) mmol/L Chloride 108 H (98-107) mmol/L Carbon Dioxide 23 (22-30) mmol/L Anion Gap 7 mmol/L BUN 18 H (7-17) mg/dL Creatinine 0.94 (0.52-1.04) mg/dL Est GFR (CKD-EPI)AfAm 70 (>60 ml/min/1.73 sqM) Est GFR (CKD-EPI)NonAf 61 (>60 ml/min/1.73 sqM) Glucose 94 (74-99) mg/dL Calcium 9.1 (8.4-10.2) mg/dL Magnesium 2.1 (1.6-2.3) mg/dL Total Bilirubin 0.6 (0.2-1.3) mg/dL AST 36 (14-36) U/L ALT 27 (4-34) U/L Alkaline Phosphatase 106 (38-126) U/L Creatine Kinase 178 H (30-135) U/L Troponin I <0.012 (0.000-0.034) ng/mL Total Protein 6.7 (6.3-8.2) g/dL Albumin 3.9 (3.5-5.0) g/dL Urine Color Urine Appearance (Clear) Urine pH (5.0-8.0) Ur Specific Scott (1.001-1.035) Urine Protein (Negative) Urine Glucose (UA) (Negative) Urine Ketones (Negative) Urine Blood (Negative) Urine Nitrite (Negative) Urine Bilirubin (Negative) Urine Urobilinogen (<2.0) mg/dL Ur Leukocyte Esterase (Negative) Urine WBC (0-5) /hpf Ur Squamous Epith Cells (0-4) /hpf Urine Bacteria (None) /hpf 12/14/21 Range/Units 15:10 WBC (3.8-10.6) k/uL RBC (3.80-5.40) m/uL Hgb (11.4-16.0) gm/dL Hct (34.0-46.0) % MCV (80.0-100.0) fL MCH (25.0-35.0) pg MCHC (31.0-37.0) g/dL RDW (11.5-15.5) % Plt Count (150-450) k/uL MPV Neutrophils % % Lymphocytes % % Monocytes % % Eosinophils % % Basophils % % Neutrophils # (1.3-7.7) k/uL Lymphocytes # (1.0-4.8) k/uL Monocytes # (0-1.0) k/uL Eosinophils # (0-0.7) k/uL Basophils # (0-0.2) k/uL Sodium (137-145) mmol/L Potassium (3.5-5.1) mmol/L Chloride (98-107) mmol/L Carbon Dioxide (22-30) mmol/L Anion Gap mmol/L BUN (7-17) mg/dL Creatinine (0.52-1.04) mg/dL Est GFR (CKD-EPI)AfAm (>60 ml/min/1.73 sqM) Est GFR (CKD-EPI)NonAf (>60 ml/min/1.73 sqM) Glucose (74-99) mg/dL Calcium (8.4-10.2) mg/dL Magnesium (1.6-2.3) mg/dL Total Bilirubin (0.2-1.3) mg/dL AST (14-36) U/L ALT (4-34) U/L Alkaline Phosphatase (38-126) U/L Creatine Kinase (30-135) U/L Troponin I (0.000-0.034) ng/mL Total Protein (6.3-8.2) g/dL Albumin (3.5-5.0) g/dL Urine Color Light Yellow Urine Appearance Clear (Clear) Urine pH 6.5 (5.0-8.0) Ur Specific Scott 1.006 (1.001-1.035) Urine Protein Negative (Negative) Urine Glucose (UA) Negative (Negative) Urine Ketones Negative (Negative) Urine Blood Negative (Negative) Urine Nitrite Negative (Negative) Urine Bilirubin Negative (Negative) Urine Urobilinogen <2.0 (<2.0) mg/dL Ur Leukocyte Esterase Small H (Negative) Urine WBC 4 (0-5) /hpf Ur Squamous Epith Cells 1 (0-4) /hpf Urine Bacteria Rare H (None) /hpf - EKG Data -: EKG Interpreted by [place] EKG Comments: EKG done at 1500 and read by the attending physician reveals normal sinus rhythm with a rate of 81, normal intervals otherwise, no acute ST or T-wave changes. Normal axis. Normal respiratory fell in April. - Radiology Data Radiology results: report reviewed, image reviewed Disposition Clinical Impression: Rib fracture, Closed head injury Disposition: HOME SELF-CARE Condition: Good Instructions (If sedation given, give patient instructions): Fall Prevention (ED), Head Injury (ED), Rib Fracture (ED) Additional Instructions: Make sure somebody stays with her at all times for the next 24 hours. Follow the head injury instructions. Call tomorrow morning to set up a follow-up appointment with your regular doctor. Follow-up with your regular physician as directed. Return to the ER immediately if any symptoms worsen, new symptoms arise, or any other problems develop. Prescriptions: HYDROcodone/APAP 5-325MG [Rombauer 5-325] 1 tab PO Q6HR PRN 3 Days #12 tab PRN Reason: Pain Is patient prescribed a controlled substance at d/c from ED?: Yes When asked, does pt state using other controlled substances?: No Referrals: Clement Francois MD [Primary Care Provider] - 1-2 days Time of Disposition: 16:04
[2021-12-14 15:01] LABS: Basophils % (A) 1 %; Eosinophils # (A) 0.4 k/uL (0-0.7); Eosinophils % (A) 6 %; HCT 38.2 % (34.0-46.0); HGB 12.7 gm/dL (11.4-16.0); Lymphocytes # (A) 1.6 k/uL (1.0-4.8); Lymphocytes % (A) 27 %; MCH 31.7 pg (25.0-35.0); MCHC 33.2 g/dL (31.0-37.0); MCV 95.6 fL (80.0-100.0); Mean Platelet Volume 8.1; Monocytes # (A) 0.3 k/uL (0-1.0); Monocytes % (A) 5 %; Neutrophils # (A) 3.6 k/uL (1.3-7.7); Neutrophils % (A) 60 %; Platelet Count 226 k/uL (150-450); RDW 12.9 % (11.5-15.5); WBC 6.1 k/uL (3.8-10.6)
[2021-12-14 15:16] LABS: Albumin 3.9 g/dL (3.5-5.0); Calcium 9.1 mg/dL (8.4-10.2); Magnesium 2.1 mg/dL (1.6-2.3); Potassium 3.6 mmol/L (3.5-5.1); Total Bilirubin 0.6 mg/dL (0.2-1.3); Total Protein 6.7 g/dL (6.3-8.2)
[2021-12-14 15:29] LABS: Appearance,Urine Clear (Clear); Bacteria,Urine Rare /hpf; Bilirubin,Urine Negative (Negative); Blood,Urine Negative (Negative); Color,Urine Light Yellow; Glucose,Urine (UA) Negative (Negative); Ketones,Urine Negative (Negative); Leukocyte Esterase,Urine Small (Negative); Nitrite,Urine Negative (Negative); PH, Urine 6.5 (5.0-8.0); Protein,Urine Negative (Negative); Specific Gravity,Urine 1.006 (1.001-1.035); Squamous Epithelial Cell,Urine 1 /hpf (0-4); Urobilinogen,Urine <2.0 mg/dL (<2.0); WBC,Urine 4 /hpf (0-5)
--- NOTE | 2021-12-14 15:41 | CT ---
EXAMINATION TYPE: CT brain cspine wo con DATE OF EXAM: 12/14/2021 COMPARISON: CT head 08/19/2020 HISTORY: fall CT DLP: 1499.4 mGycm Automated exposure control for dose reduction was used. TECHNIQUE: CT scan of the head and cervical spine are performed without contrast. FINDINGS: There is no acute intracranial hemorrhage, mass effect, or midline shift identified. The ventricles and sulci are within normal limits in size. The globes are intact and the visualized sin uses are clear. Calcified pineal cyst. Cervical spine is visualized in its entirety from C1 through upper thoracic levels and demonstrates s atisfactory alignment without evidence of acute fracture or dislocation. Prevertebral soft tissue ap pears within normal limits. The C1-C2 articulation is unremarkable. IMPRESSION: 1. There is no acute fracture or dislocation evident in the cervical spine. 2. No acute intracranial hemorrhage, mass effect, or midline shift is seen.
--- NOTE | 2021-12-14 15:44 | XR ---
EXAMINATION TYPE: XR ribs LT w pa chest xray DATE OF EXAM: 12/14/2021 COMPARISON: NONE HISTORY: Fall TECHNIQUE: PA chest, AP and oblique views of the ribs. FINDINGS: No displaced rib fracture. The lungs are grossly clear. Blunting of the right costophrenic angle may relate to scarring versus a tiny effusion. No consolidation or pneumothorax. IMPRESSION: No displaced rib fracture.
[2021-12-14 16:20] VITALS: BP 125/77; PULSE 89
== END 2021-12-14 16:20 | disposition home or self-care (01) ==
LOC: EC 13:34
DX: S22.32XA Fracture of one rib, left side, initial encounter for closed fracture (principal); S09.90XA Unspecified injury of head, initial encounter; I10 Essential (primary) hypertension; E78.5 Hyperlipidemia, unspecified; F41.9 Anxiety disorder, unspecified; Z88.1 Allergy status to other antibiotic agents; Z88.2 Allergy status to sulfonamides; Z96.652 Presence of left artificial knee joint; W01.0XXA Fall on same level from slipping, tripping and stumbling without subsequent striking against object, initial encounter
CPT/HCPCS: 99285; 96374; 96375; 36415; 93005; 80053; 82550; 83735; 84484; 85025; 81001; 71101; 72125; 70450; J2270; J2405

== ENCOUNTER → 2021-12-29 | Outpatient (CLI) | payer MEDICARE ==
[2021-12-29 19:21] LABS: African American GFR (CKD) 73.5 (60.0-200.0); BUN/Creat Ratio 18.44 Ratio (12.00-20.00); Blood Urea Nitrogen 16.6 mg/dL (9.0-27.0); Calcium 9.4 mg/dL (8.7-10.3); Carbon Dioxide 21.4 mmol/L (20.0-27.5); Chloride 107 mmol/L (96-109); Glucose 96 mg/dL (70-110); Non-African American GFR(CKD) 63.4 (60.0-200.0); Potassium 3.9 mmol/L (3.5-5.5); Sodium 141 mmol/L (135-145)
== END | disposition home or self-care (01) ==
LOC: LABWHC1 12:02
PROVIDERS: ATTEND Internal Medicine
DX: E03.9 Hypothyroidism, unspecified (principal); S20.212D Contusion of left front wall of thorax, subsequent encounter; Y99.9 Unspecified external cause status
CPT/HCPCS: 36415; 80048; 84439; 84443

== ENCOUNTER → 2022-02-09 | Outpatient (CLI) | payer MEDICARE ==
--- NOTE | 2022-02-09 14:56 | BD ---
EXAMINATION TYPE: Axial Bone Density DATE OF EXAM: 02/09/2022 COMPARISON: 08/21/2010 CLINICAL HISTORY: Height: 63.2 IN Weight: 260 LBS FRAX RISK QUESTIONS: History of Fracture in Adulthood: LT RIBS AGE 71 Secondary Osteoporosis: 3. Menopause before 45: PARTIAL HYST AGE 35 RISK FACTORS HISTORY OF: Family History of Osteoporosis: YES MOTHER AND FATHER Active: LIMITED Diet low in dairy products/other sources of calcium: YES Postmenopausal woman: PARTIAL HYST AGE 35 MEDICATIONS: Thyroid Medications: YES Which medication: Levothyroxine How Lon+ YEARS Additional Medications: MULTI VIT, LEVOTHYROXINE, BLOOD PRESSURE MEDS, ANTI-DEPRESSION MEDS, PRAVASTA TIN, EXAM MEASUREMENTS: Bone mineral densitometry was performed using the [employer] System. Bone mineral density as measured about the Lumbar spine is: ----- L1-L4(G/cm2): 1.555 T Score Values are as follows: ----- L2: 3.3 ----- L3: 4.2 ----- L4: 2.6 ----- L1-L4: 3.1 Bone mineral density has: Increased 10.6% since study of: 08/21/2010 Bone mineral density about the R hip (g/cm2): 0.929 Bone mineral density about the L hip (g/cm2): 1.123 T Score values are as follows: -----R Neck: -0.8 -----L Neck: 0.6 -----R Total: 0.3 -----L Total: 0.8 Bone mineral density has: Increased 0.7% since study of: 08/21/2010 IMPRESSION: No evidence for osteoporosis or osteopenia. NOTE: T-SCORE=SD OF THE YOUNG ADULT MEAN.
--- NOTE | 2022-02-11 09:40 | MM ---
Reason for exam: screening (asymptomatic). Last mammogram was performed 1 year and 3 months ago. History: Patient is postmenopausal. Core biopsy of the left breast. Physical Findings: A clinical breast exam by your physician is recommended on an annual basis and results should be correlated with mammographic findings. MG 3D Screening Mammo W/Cad Bilateral CC and MLO view(s) were taken. Prior study comparison: November 04, 2020, bilateral MG 3d screening mammo w/cad. October 30, 2019, bilateral MG 3d screening mammo w/cad. There are scattered fibroglandular densities. Benign intramammary and low axillary tail lymph nodes are unchanged. No significant changes when compared with prior studies. ASSESSMENT: Benign, BI-RAD 2 RECOMMENDATION: Routine screening mammogram of both breasts in 1 year.
== END | disposition home or self-care (01) ==
LOC: RADBDWWP 12:14
PROVIDERS: ATTEND Internal Medicine
DX: Z12.31 Encounter for screening mammogram for malignant neoplasm of breast (principal); Z78.0 Asymptomatic menopausal state
CPT/HCPCS: 77063; 77067; 77080

== ENCOUNTER → 2022-03-20 | Outpatient (CLI) | payer MEDICARE ==
[2022-03-20 22:10] LABS: T4, Free (Free Thyroxine) 1.29 ng/dL (0.800-1.800)
== END | disposition home or self-care (01) ==
LOC: LABWHC1 10:36
PROVIDERS: ATTEND Internal Medicine
DX: E03.9 Hypothyroidism, unspecified (principal)
CPT/HCPCS: 36415; 84439; 84443

== ENCOUNTER → 2022-04-01 | Outpatient (CLI) | payer MEDICARE ==
[2022-04-01 15:17] LABS: HCT 42.8 % (34.0-46.0); HGB 13.9 gm/dL (11.4-16.0); MCH 30.4 pg (25.0-35.0); MCHC 32.5 g/dL (31.0-37.0); MCV 93.6 fL (80.0-100.0); Mean Platelet Volume 8.3; Platelet Count 259 k/uL (150-450); RBC 4.57 m/uL (3.80-5.40); RDW 13.3 % (11.5-15.5); WBC 5.4 k/uL (3.8-10.6)
[2022-04-01 15:34] LABS: ALT 16 U/L (4-34); AST 24 U/L (14-36); African American GFR (CKD) 72 (>60 ml/min/1.73 sqM); Albumin 4.1 g/dL (3.5-5.0); Albumin/Globulin Ratio 1.4; Alkaline Phosphatase 89 U/L (38-126); Anion Gap 6 mmol/L; Blood Urea Nitrogen 21 mg/dL (7-17); Calcium 9.2 mg/dL (8.4-10.2); Carbon Dioxide 27 mmol/L (22-30); Chloride 106 mmol/L (98-107); Glucose 92 mg/dL (74-99); Non-African American GFR(CKD) 63 (>60 ml/min/1.73 sqM); Potassium 4.2 mmol/L (3.5-5.1); Sodium 139 mmol/L (137-145); Total Bilirubin 0.6 mg/dL (0.2-1.3); Total Protein 7.1 g/dL (6.3-8.2)
--- NOTE | 2022-04-01 16:45 | CT ---
EXAMINATION TYPE: CT abdomen pelvis w con DATE OF EXAM: 04/01/2022 COMPARISON: 11/23/2020 HISTORY: RLQ PAIN AND TENDERNESS CT DLP: 1816.5 mGycm CONTRAST: CT scan of the abdomen and pelvis is performed with Oral Contrast and with IV Contrast, patient injec alexia with 100 mL of Isovue 300. FINDINGS: LUNG BASES-: No visible nodule. No infiltrate. LIVER/GB: The gallbladder surgically absent. No space occupying hepatic lesion. Biliary tree is of normal caliber. PANCREAS: No inflammation. No distinct mass. SPLEEN: No splenic enlargement. No lesion seen. Splenic artery aneurysm measuring 1.4 cm which is p artially calcified. ADRENALS: No nodule. No thickening. KIDNEYS/BLADDER: No hydronephrosis. No nephrolithiasis. No distinct renal mass. Urinary bladder g rossly unremarkable. BOWEL: Normal appendix. Normal bowel caliber. No inflammation. Anterior abdominal wall hernia at th e level of the umbilicus contains a short segment of bowel without incarceration or strangulation. No evidence for obstruction. Sigmoid diverticulosis without diverticulitis. GENITAL ORGANS: No gross abnormality. LYMPH NODES: No greater than 1cm abdominal or pelvic lymph nodes are appreciated. AORTA: No significant abnormality. OSSEOUS STRUCTURES: Degenerative changes lumbar spine. OTHER: No significant additional abnormality is seen. IMPRESSION: 1. Anterior abdominal wall hernia containing a short segment of small bowel without obstruction or st rangulation at this time. 2. Sigmoid diverticulosis without diverticulitis.
== END | disposition home or self-care (01) ==
LOC: RADCTMAIN 14:22
PROVIDERS: ATTEND Internal Medicine
DX: E03.9 Hypothyroidism, unspecified (principal); K43.9 Ventral hernia without obstruction or gangrene; K57.30 Diverticulosis of large intestine without perforation or abscess without bleeding
CPT/HCPCS: 84439; 80053; 84443; 85027; 74177; 36415; Q9967; 81003

== ENCOUNTER → 2022-04-28 | Outpatient (CLI) | payer MEDICARE ==
[2022-04-28 14:55] LABS: LDL Cholesterol,Calculated 92.1 mg/dL (0.0-131.0)
== END | disposition home or self-care (01) ==
LOC: LABWHC1 08:56
PROVIDERS: ATTEND Nurse Practitioner Adult Health
DX: E78.5 Hyperlipidemia, unspecified (principal)
CPT/HCPCS: 36415; 80061

== ENCOUNTER → 2022-04-28 | Outpatient (CLI) | payer MEDICARE ==
[2022-04-28 15:09] LABS: T4, Free (Free Thyroxine) 1.95 ng/dL (0.800-1.800)
== END | disposition home or self-care (01) ==
LOC: LABWHC1 08:59
PROVIDERS: ATTEND Internal Medicine
DX: E03.9 Hypothyroidism, unspecified (principal)
CPT/HCPCS: 36415; 84439; 84443

== ENCOUNTER → 2022-07-29 | Outpatient (CLI) | payer MEDICARE ==
[2022-07-29 19:22] LABS: Basophils # (A) 0.05 X 10*3/uL (0.00-0.10); Eosinophils # (A) 0.22 X 10*3/uL (0.04-0.35); Eosinophils % (A) 4.2 %; HCT 41.1 % (37.2-46.3); HGB 13.4 g/dL (12.0-15.0); Immature Grans, Automated 0.2 %; Lymphocytes # (A) 1.93 X 10*3/uL (0.90-5.00); MCH 30.4 pg (27.0-32.0); MCHC 32.6 g/dL (32.0-37.0); MCV 93.2 fL (80.0-97.0); Mean Platelet Volume 11.2 fL (9.5-12.2); Monocytes # (A) 0.35 X 10*3/uL (0.20-1.00); Monocytes % (A) 6.7 %; NRBC Per 100 WBC 0 /100 WBCS (0.0-0.0); Neutrophils # (A) 2.65 X 10*3/uL (1.80-7.70); Neutrophils % (A) 50.9 %; Platelet Count 207 X 10*3/uL (140-440); RBC 4.41 X 10*6/uL (4.10-5.20); WBC 5.21 X 10*3/uL (4.50-10.00)
[2022-07-30 00:45] LABS: ALT 17 U/L (8-44); AST 22 U/L (13-35); Albumin 4.4 g/dL (3.8-4.9); Albumin/Globulin Ratio 1.98 (1.60-3.17); Alkaline Phosphatase 87 U/L (41-126); BUN/Creat Ratio 16.44 Ratio (12.00-20.00); Blood Urea Nitrogen 16.6 mg/dL (9.0-27.0); Calcium 9.1 mg/dL (8.7-10.3); Carbon Dioxide 25.4 mmol/L (20.0-27.5); Chloride 103 mmol/L (96-109); Chol/HDL Ratio 2.45 Ratio; Globulin 2.2 g/dL (1.6-3.3); Glucose 96 mg/dL (70-110); LDL Cholesterol,Calculated 86.6 mg/dL (0.0-131.0); Non-African American GFR(CKD) 55.2 (60.0-200.0); Potassium 3.7 mmol/L (3.5-5.5); Sodium 142 mmol/L (135-145); Total Protein 6.6 g/dL (6.2-8.2)
== END | disposition home or self-care (01) ==
LOC: LABWHC1 12:23
PROVIDERS: ATTEND Internal Medicine
DX: E03.9 Hypothyroidism, unspecified (principal); Z68.41 Body mass index [BMI] 40.0-44.9, adult
CPT/HCPCS: 36415; 80053; 80061; 83525; 84439; 84443; 85025

== ENCOUNTER → 2022-09-03 | Outpatient (CLI) | payer MEDICARE ==
--- NOTE | 2022-09-03 12:11 | P.SLEEP ---
History of Present Illness DATE: 09/03/2022 CONSULTATION/NEW PATIENT EVALUATION HISTORY OF PRESENT ILLNESS/SLEEP-WAKE EVALUATION: 72 year old lady had been evaluated in the sleep center for for excessive daytime sleepiness . SLEEP SCHEDULE: Usually sleep schedule from 9-10 p.m. to 10-11 a.m.. FALLING ASLEEP: Usually no problems with the falling asleep, no TV in bedroom. DURING SLEEP: Patient has some mild snoring and wakes up from sleep usually once with nocturia. Positive history of dry mouth and heartburn during the night. No history of hypnogogical hallucinations, sleep paralysis, or cataplexy. DURING THE DAY/WAKE STATE: In the morning patient wake up tired falling asleep during the day. [place] sleepiness scale is 5. Patient date nap in the morning or early afternoon up to 2 hours. PAST MEDICAL HISTORY: Hypertension, hyperlipidemia, acid reflux, hypothyroidism, back pain, hand arthritis. PAST SURGICAL HISTORY: Bilateral knee replacement, cholecystectomy, right hand surgery for carpal tunnel syndrome, surgery for colon abscess. MEDICATIONS: Duloxetine 60 mg once a day, pantoprazole 40 mg once a day, lisinopril 10 mg once a day, pravastatin 80 mg once a day, levothyroxine 100 g once a day, cyclobenzoprine 10 mg 3 times a day, acetaminophen /codeine 300-30 mg/. SOCIAL HISTORY: Negative for] smoking, alcohol consumption occasional. FAMILY HISTORY:Hypertension, stroke, diabetes]. REVIEW OF SYSTEMS:Sleepiness during the day]. No fevers. No double vision. No recent chest pain. No shortness of breath. No abdominal pain. No bleeding episodes. No blood in urine. No seizure episodes. PHYSICAL EXAMINATION: GENERAL: A pleasant patient without any distress. VITAL SIGNS: BP 125/71] , HR 70] , RR 16] , weight 271.2] pounds, height 5]foot three quarters inches, body mass inde 46.9] . HEENT: PERRLA, EOMI. Evaluation of oropharynx showed tongue protrudes midline, low position of soft palate Mallampati 4]. NECK: Supple. No JVD. Thyroid is not palpable. 15-1/2] inches in circumference. LUNGS: Clear to percussion and to auscultation. Good air exchange. No wheezing or rhonchi. HEART: S1, S2 regular. No murmurs, gallops or rubs. ABDOMEN: Soft and nontender. Bowel sounds are present. No organomegaly appreciated. Obese EXTREMITIES: No clubbing or cyanosis. ONCOLOGIST: Awake, alert, and oriented x3. Cranial nerves 2 to 7 intact. There is no fasciculation or atrophy noted. No focal deficits observed. ASSESSMENT: 1. Mild snoring, extremely low position of soft palate Mallampati 4, borderline size of the neck. Possible obstructive sleep apnea hypopnea syndrome]. 2. Patient sleeps around 12 hours per night and takes additional nap for 2 hours during the day. Differential diagnosis with idiopathic hypersomnia]. 3 obesity body mass index 46.9]. 4. Hypertension]. 5 hyperlipidemia]. 6. Acid reflux]. 7. Hypothyroidism]. 8. Back pain]. 9. Status post bilateral knee replacement]. 10 Status post cholecystectomy]. 11 Status post surgical treatment of colon abscess]. 12status post surgical treatment of right hand carpal tunnel syndrome]. PLAN: 1. Polysomnography for evaluation of patient's breathing during sleep. Multiple sleep latency test for objective evaluation patient symptoms of excessive daytime sleepiness, if no abnormalities of respiration during polysomnogram. 2. CPAP/BiPAP titration if sleep study confirms obstructive sleep apnea- hypopnea syndrome. 3. Preferable position during sleep on the side. 4. No driving if patient feels any sleepiness. Patient is aware of civil and criminal liability for unsafe driving. 5. Sleep hygiene with regular sleep time for at least 7.5-8 hours. 6. Watching and losing weight. Thank you very much for referring this patient for consultation. Sincerely, Carlos Oliveros MD, PhD, FAASM. Diplomat of [place] [employer], Sleep Medicine Board by [place] [employer] [place] [employer] Agent Team Member of [facility] [place] Past Medical History Past Medical History: Hyperlipidemia, Hypertension Additional Past Medical History / Comment(s): ankle swelling, dry eye History of Any Multi-Drug Resistant Organisms: None Reported Past Surgical History: Joint Replacement Additional Past Surgical History / Comment(s): TOTAL LEFT KNEE, rectocele repair, 07/27/16 TOTAL RT KNEE REPLEAMCENT, tumor removed from right cheek. Past Anesthesia/Blood Transfusion Reactions: No Reported Reaction Past Psychological History: Anxiety Smoking Status: Never smoker Past Alcohol Use History: None Reported Past Drug Use History: None Reported - Past Family History Father Family Medical History: Myocardial Infarction ([place]) Additional Family Medical History / Comment(s): ALCOHOL ABUSE, KIDNEY FAILURE Mother Family Medical History: COPD, Diabetes Mellitus Medications and Allergies Home Medications Medication Instructions Recorded Confirmed Type Levothyroxine Sodium [Levoxyl] 200 mcg PO DAILY 11/12/15 03/24/21 History Lisinopril-Hctz 20-25 mg 1 tab PO DAILY 11/12/15 03/24/21 History [Zestoretic 20-25] Pantoprazole Sodium [Protonix] 40 mg PO DAILY 11/12/15 03/24/21 History Pravastatin Sodium [Pravachol] 40 mg PO DAILY 11/12/15 03/24/21 History Ibuprofen [Motrin] 800 mg PO TID PRN 11/23/16 03/24/21 History Acetaminophen-Codeine 300-30mg 1 tab PO Q6H PRN 11/01/17 03/24/21 History [Tylenol w/codeine #3] DULoxetine HCL [Cymbalta] 60 mg PO DAILY 10/18/19 03/24/21 History Metoprolol Succinate (ER) [Toprol 25 mg PO DAILY 10/18/19 03/24/21 History XL] HYDROcodone/APAP 5-325MG [Hensley 1 tab PO Q6HR PRN 3 Days #12 tab 12/14/21 Rx 5-325] Allergies Allergy/AdvReac Type Severity Reaction Status Date / Time sulfamethoxazole Allergy Rash/Hives Verified 12/14/21 14:18 [From Bactrim] trimethoprim [From Bactrim] Allergy Rash/Hives Verified 12/14/21 14:18 Sleep Note - Sleep Note Sleep Note: Temperature: Pulse Rate: Respiratory Rate: Blood Pressure: SpO2: Height: Weight: BMI: Neck Circumference:
== END ==
LOC: SLEEP 11:05
PROVIDERS: ATTEND Internal Medicine
DX: G47.33 Obstructive sleep apnea (adult) (pediatric) (principal); E66.9 Obesity, unspecified; Z68.42 Body mass index [BMI] 45.0-49.9, adult; I10 Essential (primary) hypertension; E78.5 Hyperlipidemia, unspecified; E03.9 Hypothyroidism, unspecified; K21.9 Gastro-esophageal reflux disease without esophagitis; M54.50 Low back pain, unspecified; Z88.2 Allergy status to sulfonamides; Z96.653 Presence of artificial knee joint, bilateral; Z90.49 Acquired absence of other specified parts of digestive tract; Z98.890 Other specified postprocedural states
CPT/HCPCS: 99211

== ENCOUNTER → 2023-03-24 | Outpatient (CLI) | payer MEDICARE ==
--- NOTE | 2023-03-24 16:07 | CT ---
EXAMINATION TYPE: CT brain wo con CT DLP: 1168 mGycm, Automated exposure control for dose reduction was used. DATE OF EXAM: 03/24/2023 3:53 PM COMPARISON: 12/14/2021. CLINICAL INDICATION:Female, 72 years old with history of S09.90XA UNSPECIFIED INJURY OF HEAD, INITIAL ENCOU, recent fall, hit head. Bruising LT pentecostalism. Stat hold and call TECHNIQUE: Brain: Axial CT images of the brain were obtained with coronal and sagittal reformats created and rev iewed. Contrast used: None. Oral contrast used: None. FINDINGS: Brain: Extra-axial spaces: No abnormal extra-axial fluid collections. Ventricular system: Within normal limits Cerebral parenchyma: Cerebral atrophy. No acute intraparenchymal hemorrhage or mass effect. The healy -white junction is well differentiated. Cerebellum: Unremarkable. Mass effect: No evidence of midline shift. Intracranial vasculature: unremarkable Soft tissues: Normal. Calvarium/osseous structures: No depressed skull fracture. Paranasal sinuses and mastoid air cells: Mild scattered paranasal sinus disease. Visualized orbits: Bilateral aphakia IMPRESSION: 1. No acute intracranial process. No evidence of fracture. 2. Mild cerebral atrophy changes
== END | disposition home or self-care (01) ==
LOC: RADCTMAIN 15:29
PROVIDERS: ATTEND Internal Medicine
DX: S09.90XA Unspecified injury of head, initial encounter (principal); G31.9 Degenerative disease of nervous system, unspecified
CPT/HCPCS: 70450

== ENCOUNTER → 2023-03-25 | Outpatient (CLI) | payer MEDICARE ==
[2023-03-25 19:25] LABS: Basophils # (A) 0.06 X 10*3/uL (0.00-0.10); Basophils % (A) 1.1 %; Eosinophils # (A) 0.28 X 10*3/uL (0.04-0.35); HCT 43.4 % (37.2-46.3); HGB 13.6 g/dL (12.0-15.0); Immature Grans, Automated 0.2 %; Lymphocytes # (A) 1.88 X 10*3/uL (0.90-5.00); Lymphocytes % (A) 33.6 %; MCH 29.8 pg (27.0-32.0); MCHC 31.3 g/dL (32.0-37.0); Mean Platelet Volume 11.2 fL (9.5-12.2); Monocytes # (A) 0.38 X 10*3/uL (0.20-1.00); Monocytes % (A) 6.8 %; NRBC Per 100 WBC 0 /100 WBCS (0.0-0.0); Neutrophils # (A) 2.98 X 10*3/uL (1.80-7.70); Neutrophils % (A) 53.3 %; Platelet Count 254 X 10*3/uL (140-440); RBC 4.57 X 10*6/uL (4.10-5.20); WBC 5.59 X 10*3/uL (4.50-10.00)
[2023-03-26 02:35] LABS: ALT 15 U/L (8-44); AST 18 U/L (13-35); Albumin 4.4 g/dL (3.8-4.9); Albumin/Globulin Ratio 1.82 (1.60-3.17); Alkaline Phosphatase 84 U/L (41-126); BUN/Creat Ratio 16.41 Ratio (12.00-20.00); Blood Urea Nitrogen 16.9 mg/dL (9.0-27.0); Calcium 9.8 mg/dL (8.7-10.3); Carbon Dioxide 26.7 mmol/L (20.0-27.5); Chloride 106 mmol/L (96-109); Chol/HDL Ratio 2.89 Ratio; Globulin 2.4 g/dL (1.6-3.3); Glucose 100 mg/dL (70-110); LDL Cholesterol,Calculated 114.1 mg/dL (0.0-131.0); Magnesium 2.1 mg/dL (1.5-2.4); Non-African American GFR(CKD) 53.5 (60.0-200.0); Potassium 4.9 mmol/L (3.5-5.5); Sodium 142 mmol/L (135-145); Total Protein 6.9 g/dL (6.2-8.2)
== END | disposition home or self-care (01) ==
LOC: LABWHC1 11:37
PROVIDERS: ATTEND Internal Medicine
DX: E03.9 Hypothyroidism, unspecified (principal)
CPT/HCPCS: 36415; 80053; 80061; 83735; 84439; 84443; 85025

== ENCOUNTER → 2023-04-28 | Outpatient (CLI) | payer MEDICARE ==
--- NOTE | 2023-04-29 07:42 | MM ---
Reason for Exam: Screening (asymptomatic). Last mammogram was performed 1 year(s) and 2 month(s) ago. Patient History: Menarche at age 10. First Full-Term at age 21. Hysterectomy at age 31. Postmenopausal. Core Biopsy on the Left side. Maternal aunt had breast cancer. Risk Values: Tessie 5 year model risk: 1.9%. NCI Lifetime model risk: 4.3%. Prior Study Comparison: 10/30/2019 Bilateral Screening Mammogram, [facility]. 11/04/2020 Bilateral Screening Mammogram, [facility]. 02/09/2022 Bilateral Screening Mammogram, [facility]. Tissue Density: The breast tissue is almost entirely fat. Findings: Analyzed By CAD. Left breast biopsy clip There is no suspicious group of microcalcifications or new suspicious mass in either breast. Overall Assessment: Negative, BI-RAD 1 Management: Screening Mammogram of both breasts in [address] [facility] will attempt to contact patient to return for supplemental views and ultrasound if indicated. Patient should continue monthly self-breast exams. A clinical breast exam by your physician is recommended on an annual basis. This exam should not preclude additional follow-up of suspicious palpable abnormalities. Note on Tessie scores and lifetime risk: 1. A Tessie score greater than 3% is considered moderate risk. If this is the case, consider specialist referral to assess eligibility for a risk reducing agent. 2. If overall lifetime risk for the development of breast cancer is 20% or higher, the patient may qualify for future screening with alternating mammogram and breast MRI. Electronically signed and approved by: Soy Castillo DO
== END | disposition home or self-care (01) ==
LOC: RADMAMWWP 12:07
PROVIDERS: ATTEND Internal Medicine
DX: Z12.31 Encounter for screening mammogram for malignant neoplasm of breast (principal); Z78.0 Asymptomatic menopausal state; Z80.3 Family history of malignant neoplasm of breast
CPT/HCPCS: 77063; 77067

== ENCOUNTER → 2023-09-22 | Outpatient (CLI) | payer MEDICARE ==
[2023-09-22 10:12] LABS: Basophils % (A) 1 %; Eosinophils # (A) 0.2 k/uL (0-0.7); Eosinophils % (A) 4 %; HCT 40.1 % (34.0-46.0); HGB 13.5 gm/dL (11.4-16.0); Lymphocytes # (A) 1.4 k/uL (1.0-4.8); Lymphocytes % (A) 27 %; MCH 31.7 pg (25.0-35.0); MCHC 33.7 g/dL (31.0-37.0); MCV 94.1 fL (80.0-100.0); Mean Platelet Volume 8.4; Monocytes # (A) 0.2 k/uL (0-1.0); Monocytes % (A) 5 %; Neutrophils # (A) 3.1 k/uL (1.3-7.7); Neutrophils % (A) 63 %; Platelet Count 203 k/uL (150-450); RBC 4.27 m/uL (3.80-5.40); RDW 12.8 % (11.5-15.5)
[2023-09-22 10:55] LABS: ALT 26 U/L (4-34); AST 35 U/L (14-36); African American GFR (CKD) 81 (>60 ml/min/1.73 sqM); Albumin 3.9 g/dL (3.5-5.0); Albumin/Globulin Ratio 1.5; Alkaline Phosphatase 93 U/L (38-126); Anion Gap 10 mmol/L; Blood Urea Nitrogen 13 mg/dL (7-17); Calcium 8.8 mg/dL (8.4-10.2); Carbon Dioxide 25 mmol/L (22-30); Chloride 105 mmol/L (98-107); Globulin 2.6 g/dL; Glucose 98 mg/dL (74-99); Magnesium 2.1 mg/dL (1.6-2.3); Non-African American GFR(CKD) 70 (>60 ml/min/1.73 sqM); Potassium 4.2 mmol/L (3.5-5.1); Sodium 140 mmol/L (137-145); Total Bilirubin 0.4 mg/dL (0.2-1.3); Total Protein 6.5 g/dL (6.3-8.2)
[2023-09-22 11:08] LABS: T4, Free (Free Thyroxine) 1.05 ng/dL (0.78-2.19)
--- NOTE | 2023-09-22 12:08 | CT ---
EXAMINATION TYPE: CT soft tissue neck wo/w con DATE OF EXAM: 09/22/2023 COMPARISON: 05/03/2022 HISTORY: Rt parotid swelling, history of parotid tumor CT DLP: 1358 mGycm CONTRAST: CT scan of the neck is performed without and with IV Contrast, patient injected with 100 mL of Isovue 300. Contrast enhanced CT of the neck was performed from the skull base through the lung apices. BB marker is placed at the site of clinical concern which is inferior to the right parotid gland. AIRWAY: The supraglottic, glottic, and subglottic portions of the airway appear patent and free of mass. SALIVARY GLANDS: The submandibular and parotid glands are free of mass or inflammatory process. Post surgical clips right parotid gland without evidence for recurrent mass. BB markers placed at the site of clinical concern which corresponds to the right neck inferior to the parotid gland. No distinct m ass is seen at the site of clinical concern. THYROID GLAND: No nodules or masses seen. LYMPH NODES: No adenopathy seen greater than 1cm. Right internal jugular chain lymph node measures 7 mm. LUNG APICES: No nodule or mass is seen. OTHER: Vascular structures are patent. Moderate degenerative change of the cervical spine. No absce ss seen. IMPRESSION: 1. Postoperative changes of the right parotid gland. No evidence for recurrent or residual mass. 2. No distinct mass at the site of clinical concern right neck.
[2023-09-22 15:27] LABS: Chol/HDL Ratio 1.82 Ratio; LDL Cholesterol,Calculated 45.8 mg/dL (0.0-131.0); Rheumatoid Factor, Qnt <15 IU/mL (0-15)
[2023-09-22 21:12] LABS: Cyclic Citrull Pep IgG Unit <1.5 U/mL (<=3.9); Cyclic Citrullinated Pep IgG Negative
== END | disposition home or self-care (01) ==
LOC: RADCTMAIN 09:33
PROVIDERS: ATTEND Internal Medicine
DX: E03.9 Hypothyroidism, unspecified (principal); Z85.818 Personal history of malignant neoplasm of other sites of lip, oral cavity, and pharynx; Z98.890 Other specified postprocedural states
CPT/HCPCS: 84439; 80061; 80053; 83735; 84443; 85025; 86431; 86038; 86200; 70492; 36415; Q9967

== ENCOUNTER → 2023-09-28 | Outpatient (CLI) | payer MEDICARE ==
--- NOTE | 2023-09-28 11:10 | XR ---
EXAMINATION TYPE: XR chest 2V DATE OF EXAM: 09/28/2023 COMPARISON: 12/14/2021 TECHNIQUE: PA and lateral views submitted. HISTORY: Cough FINDINGS: The lungs are clear and there is no pneumothorax, pleural effusion, or focal pneumonia. Heart size normal and no overt failure. Osseous structures demonstrate hypertrophic and degenerative changes of the spine. Hyperinflation suggests COPD. Surgical clips in the abdomen. IMPRESSION: 1. No acute process.
== END | disposition home or self-care (01) ==
LOC: RADXRMAIN 10:36
PROVIDERS: ATTEND Internal Medicine
DX: J20.9 Acute bronchitis, unspecified (principal); R05.9 Cough, unspecified
CPT/HCPCS: 71046

== ENCOUNTER → 2024-05-31 | Outpatient (CLI) | payer MEDICARE ==
--- NOTE | 2024-05-31 13:30 | XR ---
EXAMINATION TYPE: XR Hip Complete RT DATE OF EXAM: 05/31/2024 COMPARISON: NONE HISTORY: Pain TECHNIQUE: 2 views submitted FINDINGS: There is no evidence of erosive change or acute fracture. Hypertrophic high-grade hip arthropathy. Tr ochanter spurring SI joint are severe. IMPRESSION: 1. Moderate hypertrophic arthropathy correlate femoral acetabular impingement. 2. Severe SI joint arthropathy.
--- NOTE | 2024-05-31 13:34 | XR ---
EXAMINATION TYPE: XR wrist complete BILATERAL DATE OF EXAM: 05/31/2024 COMPARISON: NONE HISTORY: Pain TECHNIQUE: Four views submitted. FINDINGS: Right wrist: There is severe first MCP and DIP joint arthropathy. Mild arthropathy of the remaining MCP joints. Th ere is first carpometacarpal joint arthropathy. Well-corticated density adjacent to the ulnar styloid . Left wrist: There is mild to DIP and MCP and first carpometacarpal joint arthropathy first digit. Wel l-corticated density adjacent to the ulnar styloid. IMPRESSION: 1. Polyarticular arthropathy bilaterally greater on the right most typical of osteoarthritis.
== END | disposition home or self-care (01) ==
LOC: RADXRMAIN 12:51
PROVIDERS: ATTEND Internal Medicine
DX: M19.031 Primary osteoarthritis, right wrist (principal); M19.032 Primary osteoarthritis, left wrist; M47.818 Spondylosis without myelopathy or radiculopathy, sacral and sacrococcygeal region; G56.01 Carpal tunnel syndrome, right upper limb; M25.551 Pain in right hip
CPT/HCPCS: 73502

== ENCOUNTER → 2024-06-12 | Outpatient (CLI) | payer MEDICARE ==
--- NOTE | 2024-06-18 15:11 | MM ---
Reason for Exam: Screening (asymptomatic). Last mammogram was performed 1 year(s) and 2 month(s) ago. Patient History: Menarche at age 10. First Full-Term at age 21. Hysterectomy at age 31. Postmenopausal. Core Biopsy on the Left side. Maternal aunt had breast cancer. Risk Values: Tessie 5 year model risk: 1.9%. NCI Lifetime model risk: 4.0%. Prior Study Comparison: 11/04/2020 Bilateral Screening Mammogram, [facility]. 02/09/2022 Bilateral Screening Mammogram, [facility]. 04/28/2023 Bilateral MG 3D screening mammo w/cad, [facility]. Tissue Density: There are scattered areas of fibroglandular density. Findings: Analyzed By CAD. The pattern is symmetrical. No significant interval change is evident. Chronic nodularity appears stable. No suspicious groups of microcalcifications, spiculated or lobular masses, architectural distortion or other secondary signs of malignancy are mammographically apparent. Overall Assessment: Benign, BI-RAD 2 Management: Screening Mammogram of both breasts in 1 year. A negative mammogram report should not preclude additional follow up of suspicious palpable abnormalities. Patient should continue monthly self breast exam. A clinical breast exam by your physician is recommended on an annual basis and results should be correlated with mammographic findings. Note on Tessie scores and lifetime risk: 1. A Tessie score greater than 3% is considered moderate risk. If this is the case, consider specialist referral to assess eligibility for a risk reducing agent. 2. If overall lifetime risk for the development of breast cancer is 20% or higher, the patient may qualify for future screening with alternating mammogram and breast MRI. Electronically signed and approved by: Wayne Nowak D.O. Radiologis
== END | disposition home or self-care (01) ==
LOC: RADMAMWWP 14:56
PROVIDERS: ATTEND Internal Medicine
DX: Z12.31 Encounter for screening mammogram for malignant neoplasm of breast (principal); R92.323 Mammographic fibroglandular density, bilateral breasts; Z78.0 Asymptomatic menopausal state; Z80.3 Family history of malignant neoplasm of breast
CPT/HCPCS: 77063; 77067

== ENCOUNTER → 2024-09-22 | Outpatient (CLI) | payer MEDICARE ==
[2024-09-22 15:13] LABS: Basophils # (A) 0.04 X 10*3/uL (0.00-0.10); Eosinophils # (A) 0.15 X 10*3/uL (0.04-0.35); Eosinophils % (A) 3.6 %; HCT 40.7 % (37.2-46.3); Lymphocytes # (A) 1.68 X 10*3/uL (0.90-5.00); Lymphocytes % (A) 40.9 %; MCH 31.2 pg (27.0-32.0); MCHC 31.9 g/dL (32.0-37.0); MCV 97.6 FL (80.0-97.0); Mean Platelet Volume 11.3 FL (9.5-12.2); Monocytes # (A) 0.31 X 10*3/uL (0.20-1.00); Monocytes % (A) 7.5 %; NRBC Per 100 WBC 0 X 10*3/uL (0.00-0.01); Neutrophils # (A) 1.92 X 10*3/uL (1.80-7.70); Neutrophils % (A) 46.8 %; Platelet Count 198 X 10*3/uL (140-440); RBC 4.17 X 10*6/uL (4.10-5.20); RDW 13.4 % (11.5-14.5); WBC 4.11 X 10*3/uL (4.50-10.00)
[2024-09-22 15:38] LABS: ALT 15 U/L (8-44); AST 20 U/L (13-35); Albumin 4.1 g/dL (3.8-4.9); Albumin/Globulin Ratio 1.95 Ratio (1.60-3.17); Alkaline Phosphatase 68 U/L (41-126); Blood Urea Nitrogen 12.4 mg/dL (9.0-27.0); Calcium 9.3 mg/dL (8.7-10.3); Carbon Dioxide 23.9 mmol/L (21.6-31.8); Chloride 109 mmol/L (96-109); Chol/HDL Ratio 1.96 Ratio; Globulin 2.1 g/dL (1.6-3.3); Glucose 98 mg/dL (70-110); LDL Cholesterol,Calculated 52.1 mg/dL (0.0-131.0); Magnesium 2.2 mg/dL (1.5-2.4); Potassium 4.3 mmol/L (3.5-5.5); Sodium 142 mmol/L (135-145); T4, Free (Free Thyroxine) 1.33 ng/dL (0.80-1.80); Total Bilirubin 0.4 mg/dL (0.3-1.2); Total Protein 6.2 g/dL (6.2-8.2); VLDL Calculation 15.38 mg/dL (5.00-40.00)
== END | disposition home or self-care (01) ==
LOC: LABWHC1 11:06
PROVIDERS: ATTEND Internal Medicine
CPT/HCPCS: 36415; 80053; 80061; 83735; 84439; 84443; 85025

== ENCOUNTER → 2025-02-27 | Outpatient (CLI) | payer MEDICARE ==
[2025-02-27 15:53] LABS: African American GFR (CKD) 70 (>60 ml/min/1.73 sqM); Blood Urea Nitrogen 15 mg/dL (7-17); Non-African American GFR(CKD) 61 (>60 ml/min/1.73 sqM)
--- NOTE | 2025-02-27 16:59 | CT ---
EXAMINATION TYPE: CT soft tissue neck wo/w con DATE OF EXAM: 02/27/2025 4:47 PM COMPARISON: 09/22/2023. CLINICAL INDICATION: Female, 74 years old with history of Z85.818 PRSNL HX OF MALIG NEOPLM OF SITE OF LIP, O; PHH, TECHNIQUE: Standard enhanced CT of the neck. Axial sections with coronal and sagittal reformats were obtained. Contrast used:100 mL of Isovue 300 with IV Contrast, (None if empty) Oral contrast used: (None if empty) CT DLP: 738 mGycm, Automated exposure control for dose reduction was used. FINDINGS: Brain: Visualized portions are grossly unremarkable. Orbits: Unremarkable Sinuses: Grossly unremarkable. Spaces of the neck: Clear and symmetric. Surgical clips just posterior to the parotid gland no masses definitively visualized. Musculoskeletal: No acute osseous pathology. Degenerative disc disease changes of the visualized spin e are present. Lymph nodes: Multiple nonenlarged lymph nodes are seen along both anterior chains of the neck. Vascular structures: Patent with atherosclerotic plaque of the internal carotid arteries at the bifur cation. Thoracic Inlet/airway: Airway is patent. The lung apices are clear. Soft tissues/Thyroid: Thyroid and remainder of the soft tissues are unremarkable. Other: none. IMPRESSION: Post surgical changes right neck . No evidence for enlarging mass or lymphadenopathy. No significant change from 09/22/2023. [facility], , 02/27/2025 4:56 PM
== END | disposition home or self-care (01) ==
LOC: RADCTMAIN 15:19
PROVIDERS: ATTEND Internal Medicine
DX: Z85.818 Personal history of malignant neoplasm of other sites of lip, oral cavity, and pharynx (principal); G56.00 Carpal tunnel syndrome, unspecified upper limb; G56.22 Lesion of ulnar nerve, left upper limb; Z98.890 Other specified postprocedural states
CPT/HCPCS: 82565; 84520; 70492; 36415; Q9967

== ENCOUNTER → 2025-03-16 | Outpatient (CLI) | payer MEDICARE ==
[2025-03-16 18:31] LABS: Basophils # (A) 0.02 X 10*3/uL (0.00-0.10); Basophils % (A) 0.4 %; Eosinophils # (A) 0.17 X 10*3/uL (0.04-0.35); Eosinophils % (A) 3.5 %; HCT 41.5 % (37.2-46.3); HGB 13.2 g/dL (12.0-15.0); Lymphocytes # (A) 1.54 X 10*3/uL (0.90-5.00); Lymphocytes % (A) 32.1 %; MCH 30.2 pg (27.0-32.0); MCHC 31.8 g/dL (32.0-37.0); Mean Platelet Volume 11.1 FL (9.5-12.2); Monocytes # (A) 0.37 X 10*3/uL (0.20-1.00); Monocytes % (A) 7.7 %; NRBC Per 100 WBC 0 X 10*3/uL (0.00-0.01); Neutrophils # (A) 2.69 X 10*3/uL (1.80-7.70); Neutrophils % (A) 56.1 %; Platelet Count 234 X 10*3/uL (140-440); RBC 4.37 X 10*6/uL (4.10-5.20)
[2025-03-16 20:09] LABS: Potassium 4.2 mmol/L (3.5-5.5)
== END | disposition home or self-care (01) ==
LOC: LABPAT 13:32
PROVIDERS: ATTEND Orthopaedic Surgery
DX: Z01.812 Encounter for preprocedural laboratory examination (principal); G56.01 Carpal tunnel syndrome, right upper limb
CPT/HCPCS: 80051; 85025

== ENCOUNTER 2025-03-21 09:12 | Day surgery (SDC) | payer MEDICARE ==
[2025-03-20 09:54] VITALS: BMI 45.4
--- NOTE | 2025-03-20 14:22 | HP ---
HISTORY AND PHYSICAL DATE OF SURGERY: 03/21/2025. HISTORY OF PRESENT ILLNESS: Sondra Adam is a 74-year-old patient seen with symptomatic left carpal tunnel syndrome. We discussed options regarding treatment. She elected to proceed with decompression of the left median nerve. Consent was obtained. PAST MEDICAL HISTORY: Hypertension, hyperlipidemia, hypothyroidism. PAST SURGICAL HISTORY: Cholecystectomy, shoulder arthroscopy, bilateral total knee arthroplasty. DAILY MEDICATIONS: 1. Levothyroxine. 2. Lisinopril/hydrochlorothiazide. 3. Pantoprazole. 4. Pravastatin. ALLERGIES: Bactrim. SOCIAL HISTORY: She denies tobacco use. PHYSICAL EVALUATION OF THE LEFT HAND: She has a positive carpal compression, positive carpal Tinel's causing numbness and tingling throughout the median nerve distribution. She has some decreased sensation throughout the median nerve distribution. There is no tenderness along the A1 bonita areas. She has good perfusion distally. There is a good radial pulse present. IMAGING STUDIES: Previous x-rays revealed some osteoarthritic changes. Previous EMG revealed carpal tunnel syndrome. IMPRESSION: 1. Left carpal tunnel syndrome. 2. Hypertension. 3. Hyperlipidemia. PLAN: Decompression of left median nerve. MMODL / IJN: [id number] /
[~2025-03-21 09:12] MED LIST changes: -DEXAMETHASONE SOD PHOSPHATE 4 MG/ML 1 ML VIAL IV ONE; -HYDROmorphone 0.5 MG/0.5 ML SYRINGE IVP PRN; -LACTATED RINGERS 1,000 ML IV SCH; +LIDOCAINE 1% (10MG/ML) FOR IV START INTRADERMA PRN; -ONDANSETRON 4 MG/2 ML VIAL IVP ONE; -ceFAZolin 3 GM in SODIUM CHLORIDE 0.9% 100 ML IVPB PRN
[2025-03-21] MEDS: DEXAMETHASONE SOD PHOSPHATE 4 MG/ML 1 ML VIAL IVP STA (10:04)
[2025-03-21] MEDS: ONDANSETRON 4 MG/2 ML VIAL IVP STA (10:04)
[2025-03-21] MEDS: LACTATED RINGERS 1,000 ML IV SCH (10:05)
[2025-03-21 10:09] VITALS: RESP 16; TEMP 98
[2025-03-21] MEDS: BUPIVACAINE (PF) 0.25% 30 ML VIAL SQ ONE ×2 (10:13→10:34)
[2025-03-21] MEDS ORDERED: MIDAZOLAM 2 MG/2 ML VIAL ONE (10:23)
[2025-03-21] MEDS ORDERED: fentaNYL (PF) 50 MCG/ML 2 ML AMP ONE (10:23)
[2025-03-21] MEDS ORDERED: LIDOCAINE 1% INJ 10MG/ML (20 ML MDV) ONE (10:23)
[2025-03-21] MEDS ORDERED: PROPOFOL 10 MG/ML 20 ML VIAL IV ONE (10:23)
[2025-03-21] MEDS: IV FLUID CONTINUATION 1,000 ML IV ONE (10:24)
[2025-03-21] MEDS: ceFAZolin 3 GM in SODIUM CHLORIDE 0.9% 100 ML IVPB PRN (10:25)
[2025-03-21 10:55] VITALS: BP 118/70; PULSE 78
--- NOTE | 2025-03-21 10:57 | P.OP ---
Date of Procedure: 03/21/25 Preoperative Diagnosis: Left carpal tunnel syndrome Postoperative Diagnosis: Left carpal tunnel syndrome Procedure(s) Performed: Decompression left median nerve Anesthesia: MAC, local Surgeon: Cooper Peter Estimated Blood Loss (ml): 0 Pathology: none sent Condition: stable Disposition: PACU Indications for Procedure: 74-year-old patient seen with symptomatic left carpal tunnel syndrome. After having treatment options discussed, she elected to proceed with decompression left median nerve. Operative Findings: See description of procedure Description of Procedure: Patient was brought to the operative suite. Patient received preoperative IV antibiotics. Patient underwent IV sedation by the department of anesthesia. Well-padded tourniquet placed proximal left upper extremity. Left upper extremity was prepped and draped in the normal sterile orthopedic fashion. The proposed incision site was infiltrated with 8 cc quarter percent plain Marcaine. Once sufficient local anesthesia was noted the extremity was elevated and turning insufflated to 250. I made an incision beginning at the distal volar wrist crease extending distally approximately 3 cm in line with the fourth metacarpal sharply through skin. I dissected down through the palmar fascia to the transverse carpal ligament. I made a small genna through the transverse carpal ligament. I released the ligament proximally and distally with blunt Met zenbaums. I noted complete release of the transverse carpal ligament and good decompression of the nerves. We had good hemostasis. Wound was irrigated. Skin margins were approximate nylon suture. Sterile dressings were applied. Tourniquet was now released with immediate capillary fill noted of all digits. Patient was awakened, transferred to recovery in stable condition having tolerated procedure well.
== END 2025-03-21 11:54 | disposition home or self-care (01) ==
LOC: OR 09:12
PROVIDERS: ATTEND Orthopaedic Surgery
DX: G56.02 Carpal tunnel syndrome, left upper limb (principal); E03.9 Hypothyroidism, unspecified; E78.5 Hyperlipidemia, unspecified; I10 Essential (primary) hypertension; J45.909 Unspecified asthma, uncomplicated; F17.200 Nicotine dependence, unspecified, uncomplicated; E66.9 Obesity, unspecified; F41.9 Anxiety disorder, unspecified; F32.A Depression, unspecified; Z88.1 Allergy status to other antibiotic agents; Z90.49 Acquired absence of other specified parts of digestive tract; Z79.890 Hormone replacement therapy; Z79.899 Other long term (current) drug therapy
CPT/HCPCS: 64721; J2250; J1100; J0690; J2405; J2003; J3010; J2704; J0665